=== PATIENT | male | born 1965 | race Caucasian/White ===

== ENCOUNTER → 2020-03-18 16:40 | Outpatient (BNVA) | payer OTHER, SELFPAY | PROVIDERS: Family Provider Nurse Practitioner; PCP Nurse Practitioner; Visit Provider Nurse Practitioner | DX: M54.5 Low back pain (principal); Z98.890 Other specified postprocedural states | CPT/HCPCS: 81000 ==

== ENCOUNTER → 2020-03-24 14:57 | Outpatient (BNVA) | payer OTHER, SELFPAY | PROVIDERS: Family Provider Nurse Practitioner; PCP Nurse Practitioner; Visit Provider Nurse Practitioner | DX: M54.5 Low back pain (principal) | CPT/HCPCS: 72100 ==

== ENCOUNTER → 2020-05-20 09:20 | Outpatient (BNVA) | payer OTHER, SELFPAY | PROVIDERS: Family Provider Nurse Practitioner; PCP Nurse Practitioner; Visit Provider Surgery | DX: Z20.822 Contact with and (suspected) exposure to COVID-19 (principal); Z86.010 Personal history of colon polyps | CPT/HCPCS: 87635 ==

== ENCOUNTER 2020-05-26 07:29 | Day surgery (SDC) | payer OTHER, SELFPAY ==
[2020-05-24 13:49] VITALS: BMI 23.7
--- NOTE | 2020-05-26 07:35 | ANES.PREANE2 ---
Pre-Anesthetic Assessment Pre-Anesthetic Assessment: Height/Weight: Height 1.83 m Weight 79.379 kg Preop Diagnosis: polyps Proposed Procedure: Operation Date: 05/26/20 09:00 Proposed Procedures p Colonoscopy 12338 Z86.101(Not Applicable) - Obie Santos MD Familial anesthetic complications: none Was Beta Temitope taken within 24 hours: Yes Was Clonidine taken within 24 hours: N/A Last intake: > 8 hrs Social: Social History: Tobacco and No alcohol Exam: Pre-Anes Outpt Exam: alert, oriented x 3, clear to auscultation bilaterally and regular rate & rhythm Airway: Cervical ROM: WNL MP: 2 Dentition: Partials CV/HEM: CV/HEM: HTN and LA (13 years ago) Comments: Still takes plavix, but denies any stents placed in the heart. 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 Currently holding plavix, which he has done for prior colonopscopies Anesthetic Plan: ASA status: 3 Anesthesia: MAC Risk of > 500 ml blood loss (7ml/kg in children): No PFSH Anesthesia PFSH: Medical History Colon polyps Current smoker Hypertension Surgical History History of appendectomy History of colonoscopy with polypectomy Family History Other Cancer Diabetes Hypertension Lung disease Denies family history of Dementia Stroke Social History Smoking and tobacco status: current every day smoker Second hand smoke exposure: No Smoking risk assessment/counseling performed?: Yes Alcohol intake: never Desire information about alcohol rehabilitation?: No Counseling given: No Desire information about substance/drug rehabilitation?: No Counseling given: No Adopted: No Caregiver/support person: No Lives independently: Yes Household members: spouse Housing: House Marital status: Number of children: 2 service: No 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
[2020-05-26 07:57] VITALS: BP 128/85; PULSE 67; RESP 16; TEMP 36.4; O2SAT 95
[2020-05-26] MEDS: sodium chloride 0.9% 1,000 ML 30 ML IV (08:03)
--- NOTE | 2020-05-26 08:16 | W.PM.OPSUD ---
Surgery/Procedure H&P Update DATE OF PROCEDURE: May 26, 2020 DATE H&P PERFORMED: 05/03/20 H&P UPDATE INFORMATION: I have reviewed H&P completed within last 30 days, I have examined patient prior to procedure and No changes to prior documentation PREOP DIAGNOSIS: History of colon polyps and family history of colon cancer PRIMARY INDICATION FOR PROCEDURE: The same PLANNED PROCEDURE: Operation Date: 05/26/20 09:00 Proposed Procedures p Colonoscopy 16125 Z86.101(Not Applicable) - Obie Satnos MD
--- NOTE | 2020-05-26 09:09 | ANE.PACU2 ---
Inpatient post-anesthesia follow up: Airway intact: Yes Vital signs: Temperature 97.5 F Pulse Rate 67 Respiratory Rate 16 Blood Pressure 128/85 Pulse Oximetry 95 Oxygen Delivery Me thod Oxygen Flow Rate Fraction of Inspir ed Oxygen Hydration adequate: Yes Nausea and vomiting: No Pain level: 1
[2020-05-26 09:10] VITALS: BP 113/75; PULSE 56; RESP 18; TEMP 36.1; O2SAT 94
[2020-05-26 09:17] VITALS: BP 100/55; PULSE 51; RESP 18; O2SAT 94
== END 2020-05-26 09:35 | disposition home or self-care (01) ==
PROVIDERS: PCP Nurse Practitioner; Visit Provider Surgery
PROC: 0DJD8ZZ Inspection of Lower Intestinal Tract, Via Natural or Artificial Opening Endoscopic (ICD-10-PCS; CPT 45378; principal; 2020-05-26 09:00)
DX: D12.5 Benign neoplasm of sigmoid colon (principal); Z80.0 Family history of malignant neoplasm of digestive organs; Z86.010 Personal history of colon polyps; Z79.82 Long term (current) use of aspirin; I10 Essential (primary) hypertension; I25.2 Old myocardial infarction; Z79.02 Long term (current) use of antithrombotics/antiplatelets; F17.210 Nicotine dependence, cigarettes, uncomplicated
CPT/HCPCS: 45385; 96360; 96361; J2704; J3490; J7030

== ENCOUNTER 2020-05-31 14:19 | Emergency (ER) | payer OTHER, SELFPAY ==
[2020-05-31 14:54] VITALS: BP 119/70; PULSE 90; RESP 18; TEMP 37; O2SAT 96; BMI 23.7
--- NOTE | 2020-05-31 16:06 | ECG_ITS ---
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 Measurements Intervals [place] Rate: 88 P: 51 PA: 148 QRS: 38 QRSD: 82 T: 53 QT: 340 QTc: 412 Interpretive Statements SINUS RHYTHM WITH OCCASIONAL VENTRICULAR PREMATURE COMPLEXES No previous ECG available for comparison Electronically Signed On 05-31-2020 20:10:32 CDT by Brian Avalos M.D. [email or web address] [id number]
--- NOTE | 2020-05-31 16:06 | XRR_ITS ---
PROCEDURE INFORMATION: Exam: XR Chest Exam date and time: 05/31/2020 4:33 PM Age: 54 years old Clinical indication: Chest pain; Prior surgery; Surgery type: Appy TECHNIQUE: Imaging protocol: XR of the chest. Views: 1 view. COMPARISON: CR Chest 2 views* [id number] 09/03/2013 4:32 PM FINDINGS: Lungs: No consolidation. There is minimal linear scarring in lung bases. Pleural spaces: Unremarkable. No pleural effusion. No pneumothorax. Heart/Mediastinum: No significant cardiomegaly. Bones/joints: No acute finding. XR/XR chest 1V portable [id number] IMPRESSION: No acute cardiopulmonary finding.
[2020-05-31 17:21] LABS: Basophils % 0.2 %; Eosinophils # 0.1 10^3/uL (0.0-0.8); Eosinophils % 0.6 %; Hemoglobin 15.7 g/dL (11.7-16.6); Lymphocytes # 0.7 10^3/uL (0.8-4.8); Lymphocytes % 4.4 %; Mean Corpuscular HGB Conc 32.7 g/dL (30.0-36.0); Mean Corpuscular Hemoglobin 30.2 pg (28.0-34.0); Mean Corpuscular Volume 92.3 fL (80-94); Mean Platelet Volume 10.7 fL (7.4-10.4); Monocytes # 0.6 10^3/uL (0.2-0.9); Monocytes % 3.6 %; Neutrophils # 14.74 10^3/uL (1.8-7.7); Neutrophils % 90.8 %; Nucleated Red Blood Cells % 0 %; Platelet Count 316 10^3/cmm (130-400); Red Cell Distribution Width 13.3 % (12.1-15.1); White Blood Count 16.2 10^3/uL (4.0-10.0)
[2020-05-31 17:26] VITALS: BP 154/88; PULSE 72; RESP 19; O2SAT 99
--- NOTE | 2020-05-31 17:46 | CTR_ITS ---
PROCEDURE INFORMATION: Exam: CT Abdomen And Pelvis With Contrast Exam date and time: 05/31/2020 5:51 PM Age: 54 years old Clinical indication: Nausea and vomiting and other: Diarrhea; Abdominal pain; Localized; Right lower quadrant (rlq); Prior surgery; Surgery type: Appy; Additional info: Abd pain TECHNIQUE: Imaging protocol: Computed tomography of the abdomen and pelvis with contrast. Total images: 233 Radiation optimization: All CT scans at this facility use at least one of these dose optimization techniques: automated exposure control; mA and/or kV adjustment per patient size (includes targeted exams where dose is matched to clinical indication); or iterative reconstruction. Contrast material: OMNI 300; Contrast volume: 95 ml; Contrast route: INTRAVENOUS (IV); COMPARISON: No relevant prior studies available. RADIATION DOSE METRICS: Total DLP (mGy-cm): 1293.34 FINDINGS: Lungs: Peripheral acinar emphysema. Evidence of moderate pulmonary fibrosis. Liver: Mild diffuse fatty infiltration of the liver. No visible hepatic mass. Rare hepatic calcified granuloma of antecedent disease. Small 1 cm simple hepatic cyst right hepatic lobe. Gallbladder and bile ducts: Unremarkable. No calcified stones. No ductal dilation. Pancreas: Pancreas unremarkable. No visible pancreatic ductal ectasia. Spleen: Scattered splenic calcifications of antecedent granulomatous disease. Adrenal glands: Adrenal glands unremarkable. Kidneys and ureters: No hydronephrosis or perinephric fluid. No visible nephrolithiasis. No visible ureterolithiasis. Stomach and bowel: Prominent gastric rugal mucosal fold pattern which could be secondary to chronic gastritis or acute exacerbation of chronic gastritis. No visible ulcer. Nonobstructed bowel pattern. No visible acute diverticulitis. No visible adynamic or reactive ileus. Appendix: Status post appendectomy. Intraperitoneal space: No visible evidence of mesenteric lymphadenitis or active mesenteritis/panniculitis. No visible pneumoperitoneum or intraperitoneal ascites. Vasculature: Coronary artery disease. Portal vein patent. The abdominal aorta is nonaneurysmal. Moderately advanced arterial sclerotic disease. Lymph nodes: No current visible evidence of active mesenteric or retroperitoneal lymphadenopathy. Urinary bladder: Urinary bladder unremarkable. Reproductive: Prostate hypertrophy. Bones/joints: No visible active or acute osseous pathology. Soft tissues: Bilateral small inguinal hernias containing fat only. CT/CT abdomen pelvis w con* [id number] IMPRESSION: Prominent gastric rugal mucosal fold pattern which could be secondary to chronic gastritis or acute exacerbation of chronic gastritis. No visible ulcer. Radiation Dose CTDIVOL = (mGy): DLP = 1293.34 (mGy-cm)
--- NOTE | 2020-05-31 17:48 | ED_ITS ---
Documented by User: Edgar Sharma DO 05/31/20 17:59 HPI - Chest Pain General: Chief Complaint: Chest Pain Stated Complaint: chest and stomach pain, nausea, diarrhea Time Seen by Provider: 05/31/20 17:20 History of Present Illness: HPI narrative: 54-year-old male presents emergency room with complaints of diarrhea and dark stools that began this morning suddenly along with upper abdominal pain after that he began getting some substernal chest pain he took 2 nitro with relief of the chest pain. But a week ago he had attempted colonoscopy but narrowing at the splenic flexure he was only able to get to ascending colon, he had sigmoid colon polyps but that did not make it to the cecum. He has not had any bright red blood per rectum. He also mentioned he was scheduled for an ultrasound but was not sure what it was of. MD complaint: chest pain Pertinent past history: coronary artery disease Onset (ago): hour(s) Timing of current episode: episodic Prior episodes: Yes Onset: during rest Pain location: substernal Pain radiation: abdomen Severity: moderate Quality: aching and heaviness Relieving factors: nitroglycerin Exacerbating factors: nothing Associated symptoms: Reports abdominal pain; Deny diaphoresis, dyspnea, fever(s), leg edema, nausea, palpitations, sense of impending doom, syncope or vomiting Treatment prior to arrival: none Review of Systems Const: Denies: fever(s) or diaphoresis ENMT: Denies: throat pain, ear or mastoid pain, nasal discharge or nasal congestion Card: Denies: palpitations or syncope Resp: Denies: dyspnea GI: Reports: abdominal pain; Denies: nausea or vomiting : Denies: flank pain, dysuria, urinary frequency or urinary urgency Skin/Breast: Denies: rash or pruritus PFSH ED PFSH: Medical History Colon polyps Current smoker Hypertension Surgical History History of appendectomy History of colonoscopy with polypectomy Family History Other Cancer Diabetes Hypertension Lung disease Denies family history of Dementia Stroke Social History Smoking and tobacco status: current every day smoker Second hand smoke exposure: No Smoking risk assessment/counseling performed?: Yes Alcohol intake: never Desire information about alcohol rehabilitation?: No Counseling given: No Desire information about substance/drug rehabilitation?: No Counseling given: No Adopted: No Caregiver/support person: No Lives independently: Yes Household members: spouse Housing: House Marital status: Number of children: 2 service: No 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 Current gender identity: Male Physical Exam Const: COMMON NORMALS: no acute distress GENERAL APPEARANCE: cooperative and comfortable ORIENTATION/CONSCIOUSNESS: Yes awake, Yes oriented to person, Yes oriented to place and Yes oriented to time HENMT: COMMON NORMALS: normocephalic, atraumatic and hearing grossly normal bilaterally HEAD & SCALP: normocephalic and atraumatic Neck/C-Spine: COMMON NORMALS: full ROM, no lymphadenopathy, supple and no JVD Resp: COMMON NORMALS: normal respiratory effort, No retractions, No use of accessory muscles and clear to auscultation bilaterally AUSCULTATION: clear to auscultation bilaterally Cardio: COMMON NORMALS: no JVD, regular rate, regular rhythm and No murmurs present (Cardio) RATE: regular rate RHYTHM: regular rhythm GI: COMMON NORMALS: Soft to palpation and No hepatosplenomegaly present AUSCULTATION: Yes normoactive bowel sounds PALPATION: Yes Soft to palpation, No Tenderness to palpation present (GI), No Guarding due to palpation present (GI) and Yes No hepatosplenomegaly present Extremity: COMMON NORMALS: normal to inspection, capillary refill normal, no clubbing, cyanosis or edema, no calf tenderness and no pedal edema Neuro: SENSORIUM/ORIENTATION: Yes oriented to person, Yes oriented to place and Yes oriented to time Skin: COMMON NORMALS: no rashes or lesions noted GENERAL SKIN EXAM: no rashes or lesions noted Course Vital Signs: Vital signs: Vital Signs Temperature 98.3 F 05/31/20 20:26 Pulse Rate 71 05/31/20 20:26 Respiratory Rate 18 05/31/20 20:26 Blood Pressure 130/86 05/31/20 20:26 Pulse Oximetry 96 05/31/20 20:26 MDM - Chest Pain MDM Narrative: Medical decision making narrative: Care turned over to Dr. Yoo at change of shift please see his note for final diagnosis and disposition Lab Data: Labs: Lab Results 05/31/20 05/31/20 05/31/20 Range/Units 16:58 16:58 16:58 WBC 16.2 H (4.0-10.0) 10^3/ uL RBC 5.20 (4.1-5.3) 10^6/u L Hgb 15.7 (11.7-16.6) g/dL Hct 48.0 (42.0-52.0) % MCV 92.3 (80-94) fL MCH 30.2 (28.0-34.0) pg MCHC 32.7 (30.0-36.0) g/dL RDW 13.3 (12.1-15.1) % Plt Count 316 (130-400) 10^3/c mm MPV 10.7 H (7.4-10.4) fL Neut % (Auto) 90.8 % Lymph % (Auto) 4.4 % Tift % (Auto) 3.6 % Eos % (Auto) 0.6 % Baso % (Auto) 0.2 % Neut # (Auto) 14.74 H (1.8-7.7) 10^3/u L Lymph # (Auto) 0.7 L (0.8-4.8) 10^3/u L Tift # (Auto) 0.6 (0.2-0.9) 10^3/u L Eos # (Auto) 0.1 (0.0-0.8) 10^3/u L Baso # (Auto) 0.0 (0.0-0.1) 10^3/u L Nucleated RBC % (a uto) 0 % Nucleated RBCs # 0.0 /100WBC Sodium 137 (136-145) mmol/L Potassium 4.0 (3.5-5.1) mmol/L Chloride 99 (98-107) mmol/L Carbon Dioxide 24 (22-29) mmol/L Anion Gap 18.0 (5-19) BUN 17 (6-20) mg/dL Creatinine 0.7 (0.7-1.2) mg/dL GFR Calculation 117.1 (90-130) mL/min Glucose 121 H (65-115) mg/dL Calculated Osmolal ity 287 (285-295) mOsm/k g Lactic Acid 1.1 (0.5-2.2) mmol/L Calcium 9.6 (8.5-10.5) mg/dL Total Bilirubin 0.4 (0.15-1.2) mg/dL AST 20 (0-40) U/L ALT 24 (0-41) U/L Alkaline Phosphata se 150 H (40-130) IU/L Troponin T Baselin e (0-15) ng/L Troponin T 120 Min [place] (0-15) ng/L Delta Troponin T (0-10) ABS# Total Protein 7.6 (6.6-8.7) g/dL Albumin 4.9 (3.5-5.2) g/dL Globulin 2.7 (1.3-4.6) g/dL 05/31/20 05/31/20 Range/Units 16:58 19:12 WBC (4.0-10.0) 10^3/ uL RBC (4.1-5.3) 10^6/u L Hgb (11.7-16.6) g/dL Hct (42.0-52.0) % MCV (80-94) fL MCH (28.0-34.0) pg MCHC (30.0-36.0) g/dL RDW (12.1-15.1) % Plt Count (130-400) 10^3/c mm MPV (7.4-10.4) fL Neut % (Auto) % Lymph % (Auto) % Tift % (Auto) % Eos % (Auto) % Baso % (Auto) % Neut # (Auto) (1.8-7.7) 10^3/u L Lymph # (Auto) (0.8-4.8) 10^3/u L Tift # (Auto) (0.2-0.9) 10^3/u L Eos # (Auto) (0.0-0.8) 10^3/u L Baso # (Auto) (0.0-0.1) 10^3/u L Nucleated RBC % (a uto) % Nucleated RBCs # /100WBC Sodium (136-145) mmol/L Potassium (3.5-5.1) mmol/L Chloride (98-107) mmol/L Carbon Dioxide (22-29) mmol/L Anion Gap (5-19) BUN (6-20) mg/dL Creatinine (0.7-1.2) mg/dL GFR Calculation (90-130) mL/min Glucose (65-115) mg/dL Calculated Osmolal ity (285-295) mOsm/k g Lactic Acid (0.5-2.2) mmol/L Calcium (8.5-10.5) mg/dL Total Bilirubin (0.15-1.2) mg/dL AST (0-40) U/L ALT (0-41) U/L Alkaline Phosphata se (40-130) IU/L Troponin T Baselin e 6 (0-15) ng/L Troponin T 120 Min [place] 6.69 (0-15) ng/L Delta Troponin T 0.69 (0-10) ABS# Total Protein (6.6-8.7) g/dL Albumin (3.5-5.2) g/dL Globulin (1.3-4.6) g/dL Discharge Plan Discharge Patient Disposition: Home Clinical Impression: Atypical chest pain Nausea & vomiting Qualifiers: Vomiting type: unspecified Vomiting Intractability: unspecified Qualified Code(s): R11.2 - Nausea with vomiting, unspecified Diarrhea Qualifiers: Diarrhea type: unspecified type Qualified Code(s): R19.7 - Diarrhea, unspecified Gastritis Qualifiers: Gastritis type: unspecified gastritis Chronicity: acute Gastritis bleeding: presence of bleeding unspecified Qualified Code(s): K29.00 - Acute gastritis without bleeding Condition: Stable Prescriptions: New Zofran 4 mg tablet 4 mg PO .q4 prn PRN (Reason: nausea and vomiting) 4 Days Qty: 10 RF: 0 No Action omega-3 fatty acids 500 mg capsule 500 mg PO DAILY RF: 0 B12 Active 1,000 mcg tablet,chewable 1,000 mcg PO DAILY RF: 0 multivitamin [Daily Multi-Vitamin] Tablet 1 tab PO DAILY RF: 0 clopidogrel 75 mg tablet 75 mg PO DAILY Qty: 90 RF: 3 Hold Instructions: Resume on 05/29/20. nitroglycerin 0.4 mg tablet, sublingual 0.4 mg SUBLINGUAL Q5M PRN (Reason: chest pain) Qty: 60 RF: 3 rosuvastatin 40 mg tablet 40 mg PO DAILY Qty: 90 RF: 3 metoprolol tartrate 25 mg tablet 25 mg PO BID Qty: 180 RF: 3 aspirin 81 mg Tablet 81 mg PO DAILY RF: 0 Hold Instructions: Resume on 05/29/20. Discharge Orders: Discharge ED (Routine); Ordered 05/31/20 Ordered By: Dragan Rose Referrals: Giulia Dietz, EFREN [Primary Care Provider] - Discharge Diet: Advance as tolerated Discharge Activity: Increase activity as tolerated Patient Instructions: Opioid Safety Activity Restrictions/Additional Instructions: Increase noncaffeine/nonalcoholic fluids keep a food diary Coding Level of Care Code ED [employer] for [employer] Fwd Exam Comprehensive Documented by User: Dragan Rose 06/01/20 01:46 HPI - Chest Pain General: Chief Complaint: Chest Pain Stated Complaint: chest and stomach pain, nausea, diarrhea Time Seen by Provider: 05/31/20 17:20 PFSH ED PFSH: Medical History Colon polyps Current smoker Hypertension Surgical History History of appendectomy History of colonoscopy with polypectomy Family History Other Cancer Diabetes Hypertension Lung disease Denies family history of Dementia Stroke Social History Smoking and tobacco status: current every day smoker Second hand smoke exposure: No Smoking risk assessment/counseling performed?: Yes Alcohol intake: never Desire information about alcohol rehabilitation?: No Counseling given: No Desire information about substance/drug rehabilitation?: No Counseling given: No Adopted: No Caregiver/support person: No Lives independently: Yes Household members: spouse Housing: House Marital status: Number of children: 2 service: No 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 Current gender identity: Male Course Vital Signs: Vital signs: Vital Signs Temperature 98.3 F 05/31/20 20:26 Pulse Rate 71 05/31/20 20:26 Respiratory Rate 18 05/31/20 20:26 Blood Pressure 130/86 05/31/20 20:26 Pulse Oximetry 96 05/31/20 20:26 MDM - Chest Pain Lab Data: Labs: Lab Results 05/31/20 05/31/20 05/31/20 Range/Units 16:58 16:58 16:58 WBC 16.2 H (4.0-10.0) 10^3/ uL RBC 5.20 (4.1-5.3) 10^6/u L Hgb 15.7 (11.7-16.6) g/dL Hct 48.0 (42.0-52.0) % MCV 92.3 (80-94) fL MCH 30.2 (28.0-34.0) pg MCHC 32.7 (30.0-36.0) g/dL RDW 13.3 (12.1-15.1) % Plt Count 316 (130-400) 10^3/c mm MPV 10.7 H (7.4-10.4) fL Neut % (Auto) 90.8 % Lymph % (Auto) 4.4 % Tift % (Auto) 3.6 % Eos % (Auto) 0.6 % Baso % (Auto) 0.2 % Neut # (Auto) 14.74 H (1.8-7.7) 10^3/u L Lymph # (Auto) 0.7 L (0.8-4.8) 10^3/u L Tift # (Auto) 0.6 (0.2-0.9) 10^3/u L Eos # (Auto) 0.1 (0.0-0.8) 10^3/u L Baso # (Auto) 0.0 (0.0-0.1) 10^3/u L Nucleated RBC % (a uto) 0 % Nucleated RBCs # 0.0 /100WBC Sodium 137 (136-145) mmol/L Potassium 4.0 (3.5-5.1) mmol/L Chloride 99 (98-107) mmol/L Carbon Dioxide 24 (22-29) mmol/L Anion Gap 18.0 (5-19) BUN 17 (6-20) mg/dL Creatinine 0.7 (0.7-1.2) mg/dL GFR Calculation 117.1 (90-130) mL/min Glucose 121 H (65-115) mg/dL Calculated Osmolal ity 287 (285-295) mOsm/k g Lactic Acid 1.1 (0.5-2.2) mmol/L Calcium 9.6 (8.5-10.5) mg/dL Total Bilirubin 0.4 (0.15-1.2) mg/dL AST 20 (0-40) U/L ALT 24 (0-41) U/L Alkaline Phosphata se 150 H (40-130) IU/L Troponin T Baselin e (0-15) ng/L Troponin T 120 Min [place] (0-15) ng/L Delta Troponin T (0-10) ABS# Total Protein 7.6 (6.6-8.7) g/dL Albumin 4.9 (3.5-5.2) g/dL Globulin 2.7 (1.3-4.6) g/dL 05/31/20 05/31/20 Range/Units 16:58 19:12 WBC (4.0-10.0) 10^3/ uL RBC (4.1-5.3) 10^6/u L Hgb (11.7-16.6) g/dL Hct (42.0-52.0) % MCV (80-94) fL MCH (28.0-34.0) pg MCHC (30.0-36.0) g/dL RDW (12.1-15.1) % Plt Count (130-400) 10^3/c mm MPV (7.4-10.4) fL Neut % (Auto) % Lymph % (Auto) % Tift % (Auto) % Eos % (Auto) % Baso % (Auto) % Neut # (Auto) (1.8-7.7) 10^3/u L Lymph # (Auto) (0.8-4.8) 10^3/u L Tift # (Auto) (0.2-0.9) 10^3/u L Eos # (Auto) (0.0-0.8) 10^3/u L Baso # (Auto) (0.0-0.1) 10^3/u L Nucleated RBC % (a uto) % Nucleated RBCs # /100WBC Sodium (136-145) mmol/L Potassium (3.5-5.1) mmol/L Chloride (98-107) mmol/L Carbon Dioxide (22-29) mmol/L Anion Gap (5-19) BUN (6-20) mg/dL Creatinine (0.7-1.2) mg/dL GFR Calculation (90-130) mL/min Glucose (65-115) mg/dL Calculated Osmolal ity (285-295) mOsm/k g Lactic Acid (0.5-2.2) mmol/L Calcium (8.5-10.5) mg/dL Total Bilirubin (0.15-1.2) mg/dL AST (0-40) U/L ALT (0-41) U/L Alkaline Phosphata se (40-130) IU/L Troponin T Baselin e 6 (0-15) ng/L Troponin T 120 Min [place] 6.69 (0-15) ng/L Delta Troponin T 0.69 (0-10) ABS# Total Protein (6.6-8.7) g/dL Albumin (3.5-5.2) g/dL Globulin (1.3-4.6) g/dL Discharge Plan Discharge Patient Disposition: Home Clinical Impression: Atypical chest pain Nausea & vomiting Qualifiers: Vomiting type: unspecified Vomiting Intractability: unspecified Qualified Code(s): R11.2 - Nausea with vomiting, unspecified Diarrhea Qualifiers: Diarrhea type: unspecified type Qualified Code(s): R19.7 - Diarrhea, unspecified Gastritis Qualifiers: Gastritis type: unspecified gastritis Chronicity: acute Gastritis bleeding: presence of bleeding unspecified Qualified Code(s): K29.00 - Acute gastritis without bleeding Condition: Stable Prescriptions: New Zofran 4 mg tablet 4 mg PO .q4 prn PRN (Reason: nausea and vomiting) 4 Days Qty: 10 RF: 0 No Action omega-3 fatty acids 500 mg capsule 500 mg PO DAILY RF: 0 B12 Active 1,000 mcg tablet,chewable 1,000 mcg PO DAILY RF: 0 multivitamin [Daily Multi-Vitamin] Tablet 1 tab PO DAILY RF: 0 clopidogrel 75 mg tablet 75 mg PO DAILY Qty: 90 RF: 3 Hold Instructions: Resume on 05/29/20. nitroglycerin 0.4 mg tablet, sublingual 0.4 mg SUBLINGUAL Q5M PRN (Reason: chest pain) Qty: 60 RF: 3 rosuvastatin 40 mg tablet 40 mg PO DAILY Qty: 90 RF: 3 metoprolol tartrate 25 mg tablet 25 mg PO BID Qty: 180 RF: 3 aspirin 81 mg Tablet 81 mg PO DAILY RF: 0 Hold Instructions: Resume on 05/29/20. Discharge Orders: Discharge ED (Routine); Ordered 05/31/20 Ordered By: Dragan Rose Referrals: Giulia Dietz, PHYSICIAN SPECIALIST-C [Primary Care Provider] - Discharge Diet: Advance as tolerated Discharge Activity: Increase activity as tolerated Patient Instructions: Opioid Safety Activity Restrictions/Additional Instructions: Increase noncaffeine/nonalcoholic fluids keep a food diary Coding Level of Care Code ED [employer] for Michael Fwd Exam Comprehensive
[2020-05-31 17:49] LABS: Lactic Sepsis W/Reflex 1.1 mmol/L (0.5-2.2)
[2020-05-31 17:59] LABS: Alanine Aminotransferase 24 U/L (0-41); Albumin Level 4.9 g/dL (3.5-5.2); Alkaline Phosphatase 150 IU/L (40-130); Aspartate Amino Transferase 20 U/L (0-40); Blood Urea Nitrogen 17 mg/dL (6-20); Calcium 9.6 mg/dL (8.5-10.5); Carbon Dioxide 24 mmol/L (22-29); Chloride 99 mmol/L (98-107); Globulin 2.7 g/dL (1.3-4.6); Glomerular Filtration Rate 117.1 mL/min (90-130); Glucose 121 mg/dL (65-115); Osmolality Calculated 287 mOsm/kg (285-295); Sodium 137 mmol/L (136-145); Total Bilirubin 0.4 mg/dL (0.15-1.2); Total Protein 7.6 g/dL (6.6-8.7); Troponin(5th) Baseline 6 ng/L (0-15)
[2020-05-31] MEDS: iohexol 300 mg/mL 100 mL Btl IV (18:01)
--- NOTE | 2020-05-31 18:06 | ECG_ITS ---
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 Measurements Intervals [place] Rate: 72 P: 49 GA: 187 QRS: 41 QRSD: 93 T: 43 QT: 360 QTc: 395 Interpretive Statements SINUS RHYTHM NONSPECIFIC T-WAVE ABNORMALITY Compared to ECG 05/31/2020 15:03:30 T-wave abnormality now present Ventricular premature complex(es) no longer present Electronically Signed On 05-31-2020 20:13:38 CDT by Brian Avalos M.D. [id number]
[2020-05-31 18:26] VITALS: BP 142/82; PULSE 74; RESP 18; O2SAT 98
[2020-05-31 19:00] VITALS: BP 126/81; PULSE 74; RESP 23; O2SAT 97
[2020-05-31 19:52] LABS: Troponin 5 2HR 6.69 ng/L (0-15); Troponin 5 2HR Delta 0.69 ABS# (0-10)
[2020-05-31 20:00] VITALS: BP 137/86; PULSE 78; RESP 16; O2SAT 97
[2020-05-31 20:26] VITALS: BP 130/86; PULSE 71; RESP 18; TEMP 36.8; O2SAT 96
== END 2020-05-31 20:26 | disposition home or self-care (01) ==
PROVIDERS: Physician Assistant; Emergency Provider Emergency Medicine; PCP Nurse Practitioner
DX: R07.89 Other chest pain (principal); K29.00 Acute gastritis without bleeding; Z79.02 Long term (current) use of antithrombotics/antiplatelets; Z79.82 Long term (current) use of aspirin; I10 Essential (primary) hypertension; F17.210 Nicotine dependence, cigarettes, uncomplicated
CPT/HCPCS: 36415; 71045; 74177; 80053; 83605; 84484; 85025; 93005; 99284; Q9967

== ENCOUNTER 2020-06-04 10:33 | Outpatient (CLI) | payer OTHER, SELFPAY ==
--- NOTE | 2020-06-04 10:42 | FL_ITS ---
WS: [id number] BARIUM ENEMA SINGLE CONTRAST. HISTORY: K63.5 - Polyp of colon COMPARISON: None available. FLUOROSCOPY TIME: 1.7 minutes. Marked tortuosity of the distal sigmoid colon. Colon filled very well with contrast. Mild overlapping loops of bowel but no strictures or polyps are identified. Cecum filled normally. The appendix has b een removed. There is mild reflux of contrast into the distal small bowel. No significant diverticula r disease. FL/FL barium enema [id number] IMPRESSION: 1. No strictures or mucosal masses or diverticula identified. 2. Overlapping loops of sigmoid colon with no abnormality identified. 3. Prior cholecystectomy.
== END 2020-06-04 10:34 | disposition home or self-care (01) ==
PROVIDERS: PCP Nurse Practitioner; Visit Provider Surgery
DX: K63.5 Polyp of colon (principal); Z90.49 Acquired absence of other specified parts of digestive tract
CPT/HCPCS: 74270

== ENCOUNTER 2020-06-22 14:59 | Outpatient (CLI) | payer OTHER, SELFPAY ==
--- NOTE | 2020-06-22 15:15 | MR_ITS ---
WS: [id number] MRI LUMBAR SPINE NONCONTRAST TECHNIQUE: Sagittal T1, T2 and STIR imaging. Axial T1 and T2 imaging. CLINICAL INFORMATION: M54.5 - Low back pain COMPARISON: None. FINDINGS: Counting performed from the craniocervical junction. L5 is sacralized with residual rudimen tary disc space.Mild lumbar curve. No acute compression. No high-grade central canal stenosis. L1-L2: Normal. L2-L3: Normal. L3-L4: Mild annular bulging. Slight effacement of ventral thecal sac. Mild bilateral foraminal narrow ing. Moderate facet arthropathy. L4-L5: Mild annular bulging with slight impingement on the left subarticular recess and traversing le ft L5 nerve root. Moderate facet arthropathy. Spinal canal and foramen are patent. L5-S1: Disc osteophytic ridging with slight contact of the traversing right greater than left S1 nerv e roots. Spinal canal and foramen are patent. Visualized pelvic bony structures: Normal. Paravertebral soft tissues: Normal. MR/MR lumbar spine wo con* [id number] IMPRESSION: 1. Counting performed from the craniocervical junction. L5 is sacralized with rudimentary disc space. 2. Mild lumbar curve. No acute compression. No high-grade central canal stenos is. 3. Left eccentric annular bulging L4-5 impinges the traversing left L5 nerve r oot. Recommend correlation for left L5 nerve root symptoms. 4. Mild bilateral L3-4 foraminal narrowing. 5. Disc osteophytic ridging L5-S1 contacts the traversing right greater than l eft S1 nerve roots. 6. Moderate facet arthropathy L3-L4 and L4-L5.
--- NOTE | 2020-06-22 16:00 | MR_ITS ---
WS: [id number] MRI THORACIC SPINE WITHOUT CONTRAST TECHNIQUE: Sagittal T1, T2 and STIR imaging. Axial T2 imaging. Noncontrast imaging obtained. CLINICAL INFORMATION: M54.5 - Low back pain COMPARISON: None. FINDINGS: Mild thoracic kyphosis. No acute compression fractures. No high-grade central canal stenosis. Cord si gnal is normal. Mild chronic anterior wedging in the mid thoracic spine at T7 and T8. A few endplate Schmorl's nodes in the mid thoracic spine. Small shallow disc protrusions more prominent at T3-T4, T4 -T5, and T6-T7. Moderate facet arthropathy lower thoracic spine. Small central disc protrusion in the lower cervical spine at C5-6 with slight contact of the cervical cord. Normal caliber thoracic aorta. Adrenal glands are normal. IMPRESSION: 1. Mild thoracic kyphosis. No acute compression. No high-grade central canal stenosis. 2. Mild chronic anterior wedging in the mid thoracic spine T7-T8. 3. Shallow central disc protrusions more prominent at T3-4, T4-5, and T6-7. 4. Protrusion more prominent at T6-7 with slight contact and indentation on the thoracic cord. Spina l canal is patent. Tiny annular fissure at this level. 5. Moderate facet arthropathy in the lower thoracic spine. 6. Right pericentral protrusion in the cervical spine at C5-C6 seen on the ecological technical officer imaging with slight contact of the cervical cord. This can be further evaluated with cervical spine MRI. 7. Moderate facet arthropathy lower thoracic spine.
== END 2020-06-22 15:00 | disposition home or self-care (01) ==
PROVIDERS: PCP Nurse Practitioner; Visit Provider Nurse Practitioner
DX: M40.294 Other kyphosis, thoracic region (principal); M48.54XA Collapsed vertebra, not elsewhere classified, thoracic region, initial encounter for fracture; M51.24 Other intervertebral disc displacement, thoracic region; M47.814 Spondylosis without myelopathy or radiculopathy, thoracic region; M50.222 Other cervical disc displacement at C5-C6 level
CPT/HCPCS: 72146; 72148

== ENCOUNTER 2020-07-27 15:37 | Outpatient (RCR) | payer OTHER, SELFPAY | END 2020-08-18 23:59 | disposition home or self-care (01) | LOC: SPT 15:37 | PROVIDERS: PCP Nurse Practitioner; Referring Provider Nurse Practitioner; Visit Provider Nurse Practitioner | DX: M54.6 Pain in thoracic spine (principal); M54.5 Low back pain | CPT/HCPCS: 97110; 97162 ==

== ENCOUNTER 2020-08-19 06:00 | Outpatient (RCR) | payer OTHER, SELFPAY | END 2020-09-18 23:59 | disposition home or self-care (01) | LOC: SPT 06:00 | PROVIDERS: PCP Nurse Practitioner; Referring Provider Nurse Practitioner; Visit Provider Nurse Practitioner | DX: M54.6 Pain in thoracic spine (principal); M54.5 Low back pain | CPT/HCPCS: 97110; 97164 ==

== ENCOUNTER 2020-09-19 06:00 | Outpatient (RCR) | payer OTHER, SELFPAY | END 2020-10-19 23:59 | disposition home or self-care (01) | LOC: SPT 06:00 | PROVIDERS: PCP Nurse Practitioner; Referring Provider Nurse Practitioner; Visit Provider Nurse Practitioner | DX: M54.6 Pain in thoracic spine (principal); M54.5 Low back pain | CPT/HCPCS: 97110 ==

== ENCOUNTER → 2020-12-23 08:15 | Outpatient (BNVA) | payer OTHER, SELFPAY | PROVIDERS: PCP Internal Medicine; Visit Provider Internal Medicine | DX: Z01.818 Encounter for other preprocedural examination (principal); Z20.822 Contact with and (suspected) exposure to COVID-19; R06.00 Dyspnea, unspecified | CPT/HCPCS: 80048; 85025; 85610; 87635 ==

== ENCOUNTER 2020-12-29 05:58 | Outpatient (CLI) | payer OTHER, SELFPAY ==
[2020-12-29] VITALS (21 sets, daily range): BP systolic 114–147; BP diastolic 74–82; PULSE 56–69; RESP 0–23; TEMP 36.5; O2SAT 91–96; BMI 24.1
--- NOTE | 2020-12-29 06:00 | XACV_ITS ---
Ht: 183 cm Wt: 81 kg BSA: 2.03 m2 Gender: Male : 1965 Any Known Allergies: Penicillins Exam Priority: Routine Procedure(s): Procedure Description: Diagnostic procedure Procedure Description: Right Heart Catheterization Procedure Description: O2 saturation Procedure Description: Coronary IVUS Procedure Description: Miscellaneous Procedure Description: Angio-Seal Procedure Description: ACT Procedure Description: Coronary Angiography Procedure Description: Pressure Wire Diagnostic Cath Status: Elective Diagnostic Findings * Indication: 57-year-old man with past medical history of coronary artery disease, prior angiogram in 2017 showing moderate left main stenosis for which FFR was nonischemic. Patient also had distal RCA HAND STRAIGHTENER with collaterals from LAD. He has been having worsening shortness of breath and fatigue. Given his known left main stenosis and worsening symptoms, plan for coronary angiogram. * Left Anterior Descending is a tortuous vessel. It has moderate 40 to 50% proximal vessel stenosis. * Circumflex is a small sized vessel with no significant disease. * Left Main: obstructive 60% stenosis, JASWINDER: 3 flow. Calcified ostial stenosis. * Ramus: Medium to large sized vessel, proximal 60% stenosis, JASWINDER: 3 flow. * Right heart cath findings: RA pressure: 13/10/9 mmHg RV pressure: 60/2/12 mmHg. PCW: 13/13/11 mmHg PA pressure: 56/24/36 mmHg AO saturation: 91% PA saturation: 66% Cardiac output: 5.2L/min Cardiac index: 2.6L/min/m2 Moderate precapillary pulmonary hypertension. * Distal Right Coronary Artery: total occlusion, JASWINDER: 3 flow. * 1st Diagonal: obstructive 70% stenosis, JASWINDER: 3 flow. * Coronary angiography shows right dominance. Interventional Findings * Procedure detail: We engaged left main artery with JL 4 guide catheter. IV heparin was administered to maintain an ACT above 250 s. 0.014 run-through guidewire was used to cross ostial left main artery stenosis. IVUS catheter was inserted to to assess left main artery. Ostial left main was calcified vessel with MLA of 6.4 mm2. Given borderline findings, we proceeded with FFR of ostial left main artery to confirm severity of stenosis. FFR of left main artery was 0.78. At this time, pressure wire and guide catheter were removed. Angio-Seal was deployed to obtain hemostasis. Conclusions 1. Severe 2. ostial left main artery stenosis 3. confirmed with FFR value of 0.78 4. . 5. IVUS had borderline MLA of 6.4 mm2 6. and calcified ostium. 7. 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 8. Moderate disease of a medium to large sized ramus intermedius. 9. Moderate precapillary pulmonary hypertension noted. 10. Normal right and left-sided cardiac pressures. Recommendations * Given ostial left main stenosis is severe, confirmed with FFR and borderline significant MLA, we will refer patient for coronary artery bypass surgery. Plan discussed with patient, who wants to have surgery performed in [place]. * We will refer him for CABG. * Outpatient cardiology follow-up in 4 weeks. * Patient informed about warning symptoms and told if has significant chest pain to come to ER. Interventional RX Recommendation: CABG Anticoagulation: Heparin Pressures Phase:Rest AO : 122 / 70 ( 89 ) @ 6:24:00 AM 118 / 68 ( 88 ) @ 6:26:00 AM 118 / 78 ( 96 ) @ 6:51:00 AM RV : 60 / 2 / 12 @ 6:01:00 AM PA : 56 / 24 ( 36 ) @ 6:00:00 AM RA : a wave = 13 v wave = 10 mean = 9 @ 6:01:00 AM PCW : a wave = 13 v wave = 13 mean = 11 @ 5:59:00 AM O2 Content Phase:Rest PA : O2 Content O2: 66.1 @ 6:24:00 AM Saturations Phase:Rest AO : 91 @ 6:26:00 AM PA : 66 @ 6:24:00 AM Cardiac Output Phase:Rest [place] : 5 @ 9:28:02 AM [place] Cardiac Index: 2 @ 9:28:02 AM Flow Phase:Rest Qp : 5 @ 9:28:02 AM Qs : 5 @ 9:28:02 AM Clinical Evaluation EBL: 5mL-10mL Procedural Details Pre-Procedure Time Out. Identified patient by full name and date of as verbalized by the patient/guarantor. Does the consent match the physician's order: Yes. Accurate & Complete Informed Consent: Yes. Inpatient/Outpatient History & Physical on Chart: Yes. If H&P is completed, is and addenduem needed: No; If yes, is the addendum complete: N/A. Visualize and Verify Site with Patient/Guarantor: N/A. Relevant Radiology Images available: N/A. Pre-op teaching completed and patient verbalized understanding. The risks, benefits, and alternatives of sedation and/or procedure were discussed by physician. The patient agrees to continue. Procedure started. [facility] Clinical Fraility Score: 2: Well. Set Up Worker Indications: Worsening Angina. Chest Pain Symptom Assessment: Atypical Angina. Cardiovascular Instability: No. Correct patient, site and procedure confirmed by cath team. PERRLA. Strong, equal hand hospitality aide bilaterally. Lungs clear x 5 lobes. IV Site on Arrival: 20 gauge in the right anticubital. IV Site on Arrival: 20 gauge in the left anticubital. IV Fluids: 0.9% NaCl at KVO. 0 mL infused prior to cath lab tech. Pre Procedural Pulses: right dorsalis pedis was 1+. Pre Procedural Pulses: left dorsalis pedis was 2+. Pre Procedural Pulses: right posterior tibial was 1+. Pre Procedural Pulses: left posterior tibial was 2+. Pre Procedural Pulses: bilateral radial was 3+. right radial was prepped with chloroprep then draped in the usual sterile fashion. right brachial was prepped with chloroprep then draped in the usual sterile fashion. Baseline sample Acquired. HR: 60 BPM. Equipment: 6F - Radial. Cardiac Cath Pack. ACIST Manifold Kit Model BT 2000. Heparinized Saline (2 units/mL), 1000 mL bag. Yadiel Cerda will be planetarium sky show technician for procedure and Kizzy Landis RN will be circulating nurse for procedure. Physician arrived. Wire inserted through IV catheter in brachial vein. Physician scrubbed in. Immediate Pre-Procedure Time Out. Correct Patient: Yes; Correct Procedure: Yes; Correct Site: Yes; Correct Patient Position: Yes; Correct Supplies: Yes; Dried Flammable Prep: Yes; Blood Products Available: N/A;. Lidocaine 1% infiltrated to the right brachial. IV catheter removed over wire. [place] MON catheter inserted. [place] out. Lidocaine 1% infiltrated to the right radial. Arterial access obtained. Wire and needle out. Physician using ultrasound machine to gain arterial access. Unable to obtain radial access. MD attempting to gain access in the Femoral artery. Lidocaine 1% infiltrated to the right groin. Arterial access obtained. A 5 new zealander JL4 catheter in over wire. Multiple views taken of left coronary artery. Catheter removed over the standard wire. A 5 new zealander JR4 catheter in over wire. Multiple views taken of right coronary artery. Catheter out. Inventory is CRD 6FR JL 4 GUIDE. Inventory is TR 180cm Runthrough NS extra floppy 0.014 wire. 6 new zealander JL 4 guide catheter was inserted over the wire. Runthrough guidewire was advanced through the guide catheter to lesion in the Ostial Left Main. IVUS catheter inserted. IVUS pulled back from LAD. IVUS measurement obtained. Family updated. IVUS catheter removed. FFR guidewire was advanced through the guide catheter to lesion in the ostial LMCA. ACT drawn. Results 233 seconds. Therapeutic limits - pre-heparin administration 90-150 seconds and monitoring heparin during a vascular procedure >250 seconds. Runthrough wire out. An FFR value of 0.78 was obtained for a lesion located at LMCA. Fractional flow reserve measurements obtained. Wire out. Guide catheter out. A Angio-Seal VIP ([facility]) was successful obtaining hemostatsis at the Right Femoral artery insertion site. Angioseal placed without complications. No signs or symptoms of hematoma noted. Sterile dressing applied per usual sterile fashion. Dr Avalos scrubbed out. A Manual Compression was successful obtaining hemostatsis at the Right Brachial Vein insertion site. Brachial Sheath removed and manual pressure held until hemostasis was achieved. Sterile 4x4 and Op-site applied to the puncture site. No oozing or hematoma noted. Post sheath removal instructions were given and the patient verbalized understanding. Post Procedure: Pulses reassessed and unchanged. PERRLA. Strong, equal hand hospitality aide bilaterally. No VTE prophylaxis required. Medication's Wasted: Lidocaine 1% = 3 mL. Medication's Wasted: Heparin = 2000 units. Total IV fluids: 117 mL. Contrast type used: Omnipaque 300 mgI/mL, 500 mL bottle. Medication's Wasted: Other = adenosine 68 mL. Complications: none. Post-op diagnosis: severe CAD with ostial LMCA desease. Estimated blood loss: 5mL-10mL. Procedure completed. Patient transferred by bed to 1st floor. Vital chart was stopped. Access Site Site: Right Brachial Vein Sheath Size: 6 Fr Hemostasis Method: Manual Compression Hemostasis Success: Successful Site: Right Femoral artery Sheath Size: 6 Fr Hemostasis Method: Angio-Seal VIP ([facility]) Hemostasis Success: Successful Procedure Medications Start: 7:48 AM Stop: 7:48 AM Medication: Versed Amount: 1 mg Route: I.V. Start: 7:48 AM Stop: 7:48 AM Medication: Fentanyl Amount: 50 mcg Route: I.V. Start: 8:18 AM Stop: 8:18 AM Medication: Versed Amount: 1 mg Route: I.V. Start: 8:32 AM Stop: 8:32 AM Medication: Heparin Amount: 7000 units Start: 8:48 AM Stop: 8:48 AM Medication: Heparin Amount: 1000 units Route: I.V. Start: 9:03 AM Stop: 9:03 AM Medication: Heparin Amount: 1000 units Route: I.V. I, the attending physician, have reviewed and verified all procedure medications. Yes, all medications given per verbal order History/Risk Factors Hypertension: Yes Dyslipidemia: No Peripheral Arterial Disease (PAD): No Myocardial Infarction (OK): No Obesity: No Renal Disease: No Prior Interventions PCI: No CABG: No Valve Surgery: No Report Signatures Finalized by Brian Avalos MD on 02/18/2021 09:47 AM
[2020-12-29] MEDS: diphenhydrAMINE 50 mg Capsule PO (06:56)
--- NOTE | 2020-12-29 07:37 | W.PM.OPSUD ---
Surgery/Procedure H&P Update DATE OF PROCEDURE: December 29, 2020 DATE H&P PERFORMED: 12/13/20 H&P UPDATE INFORMATION: I have reviewed H&P completed within last 30 days, I have examined patient prior to procedure and No changes to prior documentation PREOP DIAGNOSIS: Worsening dyspnea on exertion PRIMARY INDICATION FOR PROCEDURE: Worsening dyspnea on exertion PLANNED PROCEDURE: Operation Date: 12/29/20 07:00 Proposed Procedures p Cardiac Catheterization(Bilateral) - Brian Avalos M.D Possible percutaneous coronary intervention PATIENT REASSESSED PRIOR TO SEDATION, WITH NO CHANGE NOTED: Yes PHYSICAL EXAM: alert, oriented x 3, clear to auscultation bilaterally and regular rate & rhythm AIRWAY EVAL/ANESTHESIA PLAN: ASA III, Monitored Anesthesia, Local Anesthesia, Risks, benefits & alternatives of sedation and/or procedure discussed and Patient agrees to continue as planned
[2020-12-29 08:11] LABS: Arterial Blood Gas Hematocrit 42.6 % (42-52); Blood Gas Operator Identificat PULM ARTERY; Blood Gas Sample Site Not specified; Blood Gas Sample Type Not specified; Carboxyhemoglobin 5.2 %THgb (0.4-20.1); HGB O2 Sat 62.1 % (95-100); Methemoglobin 0.9 % (0.4-1.5); Total Hemoglobin 13.9 g/dL (14-18)
[2020-12-29 08:32] LABS: Alveolar-Arterial Oxygen Gradi 5.5 mmHg (5-10); Arterial Blood Gas Hematocrit 40.7 % (42-52); Blood Gas Operator Identificat AO; Blood Gas Sample Site Not specified; Blood Gas Sample Type Arterial; Carboxyhemoglobin 5.1 %THgb (0.4-20.1); HGB O2 Sat 85.1 % (95-100); Oxygen Device ROOM AIR; Total Hemoglobin 13.3 g/dL (14-18)
[2020-12-29] MEDS: sodium chloride 0.9% 1,000 ML 75 ML IV (10:15)
--- NOTE | 2020-12-29 15:37 | PC.NURSE ---
ambulation Pt is up and walking down hallways. Denies any pain or discomfort. No hematoma or swelling noted on right groin dressing. 0.2 cmx 0.2cm blood ooze on the dressing, no significant bleeding saturation for 6 hrs post angiogram w/angio seal closure device. Instructed pt on activity restrictions.
--- NOTE | 2020-12-29 17:07 | PC.NURSE ---
Discharge Note Patient discharged to home via bed accompanied by . Discharge instructions reviewed with patient and/or scheduling representative. Mobile pharmacy medications and/or prescriptions provided. Belongings/home medications returned. Post angiogram home care instructions discussed to pt. Discharge packet provided to pt.
== END 2020-12-29 16:30 | disposition home or self-care (01) ==
LOC: CCL 06:00 → CSU 10:08
PROVIDERS: PCP Nurse Practitioner; Visit Provider Internal Medicine
DX: R06.00 Dyspnea, unspecified (principal); I25.10 Atherosclerotic heart disease of native coronary artery without angina pectoris; I25.2 Old myocardial infarction; J44.9 Chronic obstructive pulmonary disease, unspecified; I25.82 Chronic total occlusion of coronary artery; I27.20 Pulmonary hypertension, unspecified; I10 Essential (primary) hypertension; F17.210 Nicotine dependence, cigarettes, uncomplicated
CPT/HCPCS: 36415; 82810; 92978; 93456; 93571; C1751; C1753; C1760; C1769; C1887; C1894; G0378; J0153; J1644; J2250; J3010; J3490; J7030; Q0163; Q9967

== ENCOUNTER → 2021-01-04 10:38 | Outpatient (BNVA) | payer OTHER, SELFPAY | PROVIDERS: PCP Nurse Practitioner; Visit Provider Nurse Practitioner Family | DX: R05.9 Cough, unspecified (principal) | CPT/HCPCS: 71046 ==

== ENCOUNTER → 2021-01-07 11:33 | Outpatient (BNVA) | payer OTHER, SELFPAY | PROVIDERS: PCP Nurse Practitioner; Visit Provider Nurse Practitioner Family | DX: I25.119 Atherosclerotic heart disease of native coronary artery with unspecified angina pectoris (principal) | CPT/HCPCS: 80048 ==

== ENCOUNTER 2021-01-22 23:12 | Emergency (ER) | payer OTHER, SELFPAY ==
[2021-01-22 23:19] VITALS: BP 170/79; PULSE 57; RESP 18; TEMP 37.1; O2SAT 98; BMI 23.7
--- NOTE | 2021-01-22 23:24 | ECG_ITS ---
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 [email or web address]
--- NOTE | 2021-01-22 23:46 | XRR_ITS ---
PROCEDURE INFORMATION: Exam: XR Chest Exam date and time: 01/22/2021 11:46 PM Age: 55 years old Clinical indication: Sternal or substernal pain; Additional info: Cp TECHNIQUE: Imaging protocol: XR of the chest. Views: 1 view. COMPARISON: CR XR chest 2V* [id number] 01/04/2021 10:43 AM FINDINGS: Lungs: Lungs are clear. Pleural spaces: There is no pleural effusion or pneumothorax. Heart/Mediastinum: There are calcified right hilar lymph nodes. Cardiomediastinal contours are unremarkable. Bones/joints: Bones are unremarkable. XR/XR chest 1V portable [id number] IMPRESSION: No acute findings. Radiation Dose CTDIVOL = (mGy): DLP = (mGy-cm)
[2021-01-23 00:24] LABS: Basophils # 0.1 10^3/uL (0.0-0.1); Basophils % 0.3 %; Eosinophils # 0.2 10^3/uL (0.0-0.8); Eosinophils % 1.3 %; Hematocrit 40.1 % (42.0-52.0); Hemoglobin 13.4 g/dL (11.7-16.6); Lymphocytes # 2.2 10^3/uL (0.8-4.8); Lymphocytes % 13.2 %; Mean Corpuscular HGB Conc 33.4 g/dL (30.0-36.0); Mean Corpuscular Hemoglobin 30.2 pg (28.0-34.0); Mean Corpuscular Volume 90.5 fl (80-94); Mean Platelet Volume 10.8 fL (7.4-10.4); Monocytes # 0.8 10^3/uL (0.2-0.9); Neutrophils # 13.12 10^3/uL (1.8-7.7); Neutrophils % 79.7 %; Nucleated Red Blood Cells % 0 %; Platelet Count 265 10^3/cmm (130-400); Red Blood Count 4.43 10^6/uL (4.1-5.3); Red Cell Distribution Width 13.3 % (12.1-15.1); White Blood Count 16.5 10^3/uL (4.0-10.0)
[2021-01-23 00:36] LABS: INR 1.05 (0.8-1.2)
[2021-01-23 00:37] LABS: Partial Thromboplastin Time 29.5 SECONDS (23.9-36.7)
[2021-01-23 00:44] LABS: Troponin(5th) Baseline 7 ng/L (0-15)
[2021-01-23 00:51] LABS: Alanine Aminotransferase 24 U/L (0-41); Albumin Level 4.4 g/dL (3.5-5.2); Alkaline Phosphatase 104 IU/L (40-130); Anion Gap 32.3 (5-19); Aspartate Amino Transferase 20 U/L (0-40); Blood Urea Nitrogen 13 mg/dL (6-20); Calcium 9.5 mg/dL (8.5-10.5); Carbon Dioxide 23 mmol/L (22-29); Chloride 117 mmol/L (98-107); Glucose 94 mg/dL (65-115); NT Pro B Type Natriuretic Pept 75 pg/mL (0-125); Osmolality Calculated 344 mOsm/kg (285-295); Potassium 5.3 mmol/L (3.5-5.1); Total Bilirubin 0.2 mg/dL (0.15-1.2); Total Protein 6.4 g/dL (6.6-8.7)
[2021-01-23 00:59] LABS: Sodium 167 mmol/L (136-145)
[2021-01-23 01:00] VITALS: RESP 18; O2SAT 99
[2021-01-23] MEDS: morphine 4 mg/mL SDV 1 mL IVP (01:00)
[2021-01-23] MEDS: ondansetron 2 mg/ML SDV 2 mL 4 MG IVP (01:00)
--- NOTE | 2021-01-23 01:25 | ED_ITS ---
HPI - Chest Pain General: Chief Complaint: Chest Pain Stated Complaint: Chest pain Time Seen by Provider: 01/22/21 23:45 History of Present Illness: HPI narrative: 55-year-old gentleman with a history of coronary artery disease. He had a recent catheterization showing significant stenosis of his LAD with occlusion of his RCA. CABG x2 was suggested. He is waiting on a referral to [facility] in [place] cardiothoracic surgery for that. He developed chest pain last night, and took 2 nitroglycerin with some improvement. He developed chest pain again tonight, and took 3 nitroglycerin at home with incomplete improvement. He also used some Tums without help. He denies significant shortness of breath, cough, sputum production, fever. He notes that he was treated recently for pneumonia after testing negative for COVID-19 a couple of weeks ago. He is still on antibiotics for this. MD complaint: chest pain Pertinent past history: coronary artery disease Onset (ago): day(s) Timing of current episode: episodic Prior episodes: Yes Onset: during rest Pain location: substernal Quality: tightness and heaviness Associated symptoms: Deny abdominal pain, dyspnea, fever(s), nausea, palpitations or vomiting Review of Systems Const: Denies: fever(s) or chills Eyes: Reports: change in vision Card: Reports: chest pain; Denies: palpitations Resp: Denies: dyspnea, productive cough or non-productive cough GI: Denies: abdominal pain, nausea or vomiting PFS ED PFSH: Medical History Atherosclerosis of coronary artery Colon polyps Current smoker Hypertension Surgical History History of appendectomy History of colonoscopy with polypectomy Family History Other Cancer Diabetes Hypertension Lung disease Denies family history of Dementia Stroke Social History Second hand smoke exposure: No Smoking risk assessment/counseling performed?: Yes Alcohol intake: never Desire information about alcohol rehabilitation?: No Counseling given: No Desire information about substance/drug rehabilitation?: No Counseling given: No Adopted: No Caregiver/support person: No Lives independently: Yes Household members: spouse Housing: House Marital status: Number of children: 2 service: No 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 Current gender identity: Male Physical Exam Const: COMMON NORMALS: no acute distress, patient oriented x3 and alert Eye: COMMON NORMALS: Equal, round and reactive pupils present and EOMs intact bilaterally PUPIL: Yes Equal, round and reactive pupils present Chest: COMMONS NORMALS: normal inspection of the chest Resp: COMMON NORMALS: normal respiratory effort, No use of accessory muscles and clear to auscultation bilaterally AUSCULTATION: clear to auscultation bilaterally Cardio: COMMON NORMALS: regular rate and regular rhythm RATE: regular rate RHYTHM: regular rhythm GI: COMMON NORMALS: Normal to inspection, nondistended, normoactive bowel sounds present, Soft to palpation and non-tender PALPATION: Yes Soft to palpation Neuro: COMMON NORMALS: patient oriented x3 SENSORIUM/ORIENTATION: Yes alert Course Vital Signs: Vital signs: Vital Signs Temperature 98.7 F 01/22/21 23:19 Pulse Rate 58 L 01/23/21 02:30 Respiratory Rate 18 01/23/21 02:30 Blood Pressure 117/73 01/23/21 02:30 Pulse Oximetry 97 01/23/21 02:30 MDM - Chest Pain MDM Narrative: Medical decision making narrative: 55-year-old male with known coronary disease that is significant. He has been referred to cardiothoracic surgery for CABG x2 given his recent cath findings. He has had chest pain the last 2 nights. Currently resolved after nitroglycerin at home, and morphine here. He feels stable. Current vitals blood pressure 116/60 heart rate 56 sinus, saturations 96% on room air with respirations of less than 20. His EKG shows a sinus bradycardia with a normal axis, normal intervals, and no ST change at all. His troponin was 7 and then 6 at 2 hours. His chest x-ray reveals nothing acute, his D-dimer is nondetectable. Initially, sodium appeared to be elevated at 167. This was questioned is erroneous. Repeat BMP shows a sodium level of 139 with a potassium of 4.4. Shared decision making was used with this patient. His troponin obviously did not elevate. His pain is gone. No coronary intervention would be available at this facility at this time for this patient. He likely needs bypass grafting surgery. He knows this. With resolution of his pain, the patient wishes to go home. Risks including return of pain, myocardial infarction, and were discussed. He noticed these, and would rather return home and await CTS evaluation. The patient will be allowed discharge. Lab Data: Labs: Lab Results 01/23/21 01/23/21 01/23/21 00:10 00:10 00:10 WBC 16.5 10^3/uL H 10 ^3/uL (4.0-10.0) RBC 4.43 10^6/uL 10^6 /uL (4.1-5.3) Hgb 13.4 g/dL g/dL (11.7-16.6) Hct 40.1 % L % (42.0-52.0) MCV 90.5 fl fl (80-94) MCH 30.2 pg pg (28.0-34.0) MCHC 33.4 g/dL g/dL (30.0-36.0) RDW 13.3 % % (12.1-15.1) Plt Count 265 10^3/cmm 10^3 /cmm (130-400) MPV 10.8 fL H fL (7.4-10.4) Neut % (Auto) 79.7 % % Lymph % (Auto) 13.2 % % Titus % (Auto) 5.0 % % Eos % (Auto) 1.3 % % Baso % (Auto) 0.3 % % Neut # (Auto) 13.12 10^3/uL H 1 0^3/uL (1.8-7.7) Lymph # (Auto) 2.2 10^3/uL 10^3/ uL (0.8-4.8) Titus # (Auto) 0.8 10^3/uL 10^3/ uL (0.2-0.9) Eos # (Auto) 0.2 10^3/uL 10^3/ uL (0.0-0.8) Baso # (Auto) 0.1 10^3/uL 10^3/ uL (0.0-0.1) Nucleated RBC % (a uto) 0 % % Nucleated RBCs # 0.0 /100WBC /100W BC PT 14.00 SECONDS SEC ONDS (12.1-14.9) INR 1.05 (0.8-1.2) APTT 29.5 SECONDS SECO NDS (23.9-36.7) D-Dimer Sodium 167 mmol/L H* mmo l/L (136-145) Potassium 5.3 mmol/L H mmol /L (3.5-5.1) Chloride 117 mmol/L H mmol /L (98-107) Carbon Dioxide 23 mmol/L mmol/L (22-29) Anion Gap 32.3 H (5-19) BUN 13 mg/dL mg/dL (6-20) Creatinine 0.8 mg/dL mg/dL (0.7-1.2) GFR Calculation 100.0 mL/min mL/m in (90-130) Glucose 94 mg/dL mg/dL (65-115) Calculated Osmolal ity 344 mOsm/kg H mOs m/kg (285-295) Calcium 9.5 mg/dL mg/dL (8.5-10.5) Total Bilirubin 0.2 mg/dL mg/dL (0.15-1.2) AST 20 U/L U/L (0-40) ALT 24 U/L U/L (0-41) Alkaline Phosphata se 104 IU/L IU/L (40-130) Troponin T Baselin e Troponin T 120 Min pilot point Delta Troponin T NT-Pro-B Natriuret Pep 75 pg/mL pg/mL (0-125) Total Protein 6.4 g/dL L g/dL (6.6-8.7) Albumin 4.4 g/dL g/dL (3.5-5.2) Globulin 2.0 g/dL g/dL (1.3-4.6) Urine Color Urine Appearance Urine pH Ur Specific Gravit y Urine Protein Urine Glucose (UA) Urine Ketones Urine Blood Urine Nitrate Urine Bilirubin Urine Urobilinogen Ur Leukocyte Kayla ase 01/23/21 01/23/21 01/23/21 00:10 00:10 01:10 WBC RBC Hgb Hct MCV MCH MCHC RDW Plt Count MPV Neut % (Auto) Lymph % (Auto) Titus % (Auto) Eos % (Auto) Baso % (Auto) Neut # (Auto) Lymph # (Auto) Titus # (Auto) Eos # (Auto) Baso # (Auto) Nucleated RBC % (a uto) Nucleated RBCs # PT INR APTT D-Dimer <= 0.27 ug/mIFEU ug/mIFEU (0-0.59) Sodium Potassium Chloride Carbon Dioxide Anion Gap BUN Creatinine GFR Calculation Glucose Calculated Osmolal ity Calcium Total Bilirubin AST ALT Alkaline Phosphata se Troponin T Baselin e 7 ng/L ng/L (0-15) Troponin T 120 Min pilot point Delta Troponin T NT-Pro-B Natriuret Pep Total Protein Albumin Globulin Urine Color Yellow (Yellow) Urine Appearance Clear (CLEAR) Urine pH 6 (5-7) Ur Specific Gravit y 1.010 (1.005-1.030) Urine Protein Neg (Negative) Urine Glucose (UA) Norm (Normal) Urine Ketones Negative (Negative) Urine Blood Neg (Negative) Urine Nitrate Negative (Negative) Urine Bilirubin Neg (Negative) Urine Urobilinogen Norm mg/dL mg/dL (Negative) Ur Leukocyte Kayla ase Negative (Negative) 01/23/21 01/23/21 02:17 02:17 WBC RBC Hgb Hct MCV MCH MCHC RDW Plt Count MPV Neut % (Auto) Lymph % (Auto) [place]itus % (Auto) Eos % (Auto) Baso % (Auto) Neut # (Auto) Lymph # (Auto) Titus # (Auto) Eos # (Auto) Baso # (Auto) Nucleated RBC % (a uto) Nucleated RBCs # PT INR APTT D-Dimer Sodium 139 mmol/L D mmo l/L (136-145) Potassium 4.4 mmol/L mmol/L (3.5-5.1) Chloride 104 mmol/L mmol/L (98-107) Carbon Dioxide 20 mmol/L L mmol/ L (22-29) Anion Gap 19.4 H (5-19) BUN 12 mg/dL mg/dL (6-20) Creatinine 0.6 mg/dL L mg/dL (0.7-1.2) GFR Calculation 139.4 mL/min H mL /min (90-130) Glucose 98 mg/dL mg/dL (65-115) Calculated Osmolal ity 288 mOsm/kg mOsm/ kg (285-295) Calcium 9.0 mg/dL mg/dL (8.5-10.5) Total Bilirubin AST ALT Alkaline Phosphata se Troponin T Baselin e Troponin T 120 Min [place] 6.00 ng/L ng/L (0-15) Delta Troponin T -1.00 ABS# L ABS# (0-10) NT-Pro-B Natriuret Pep Total Protein Albumin Globulin Urine Color Urine Appearance Urine pH Ur Specific Gravit y Urine Protein Urine Glucose (UA) Urine Ketones Urine Blood Urine Nitrate Urine Bilirubin Urine Urobilinogen Ur Leukocyte Kayla ase Discharge Plan Discharge Patient Disposition: Home Clinical Impression: Chest pain Qualifiers: Chest pain type: unspecified Qualified Code(s): R07.9 - Chest pain, unspecified Atherosclerosis of coronary artery Qualifiers: Coronary Disease-Associated Artery/Lesion type: [place] artery [place] vs. transplanted heart: [place] heart Associated angina: with unspecified form of angina Qualified Code(s): I25.119 - Atherosclerotic heart disease of [place] coronary artery with unspecified angina pectoris Condition: Stable Prescriptions: No Action omega-3 fatty acids 500 mg capsule 500 mg PO DAILY RF: 0 B12 Active 1,000 mcg tablet,chewable 1,000 mcg PO DAILY RF: 0 multivitamin [Daily Multi-Vitamin] Tablet 1 tab PO DAILY RF: 0 clopidogrel 75 mg tablet 75 mg PO DAILY Qty: 90 RF: 3 Hold Instructions: Resume on 05/29/20. metoprolol tartrate 25 mg tablet 25 mg PO BID Qty: 180 RF: 3 nitroglycerin 0.4 mg tablet, sublingual 0.4 mg SUBLINGUAL Q5M PRN (Reason: chest pain) Qty: 30 RF: 2 aspirin [Adult Aspirin Regimen] 81 mg tablet,delayed release (DR/EC) 81 mg PO DAILY Qty: 90 RF: 3 clindamycin HCl 300 mg capsule 300 mg PO TID 10 Days Qty: 30 RF: 1 rosuvastatin 40 mg tablet 40 mg PO DAILY Qty: 30 RF: 0 Discharge Orders: Discharge ED (Routine); Ordered 01/23/21 Ordered By: Danial Amaral Referrals: Giulia Dietz FNP-C [Primary Care Provider] - Marco Rose MD [Physician] - Patient Instructions: Chest Pain (ED) Activity Restrictions/Additional Instructions: Return immediately to the ER for return of chest discomfort, any shortness of breath, fever, leg swelling, or other concerns. Our case packer and sealer will follow up on your referral to [facility] cardiothoracic surgery on Sunday Coding Level of Care Code ED Ethylene Plant Operator for Chg Fwd Exam Detailed
[2021-01-23 01:42] LABS: Add Urine Microscopic? NO; Charge for UA Resulting for Rev
[2021-01-23 01:46] LABS: Bilirubin Urine Neg (Negative); Blood Urine Neg (Negative); Glucose Urine UA Norm (Normal); Ketones Urine Negative (Negative); Leukocyte Esterase Urine Negative (Negative); Nitrate Urine Negative (Negative); Protein Urine Neg (Negative); Urine Appearance Clear (CLEAR); Urine Color Yellow (Yellow); Urobilinogen Urine Norm (Negative); pH Urine 6 (5-7)
--- NOTE | 2021-01-23 01:47 | ECG_ITS ---
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 Measurements Intervals [place] Rate: 52 P: 45 [place]: 190 QRS: 41 QRSD: 86 T: 34 QT: 415 QTc: 389 Interpretive Statements SINUS BRADYCARDIA Compared to ECG 01/22/2021 23:27:33 No significant changes Electronically Signed On 01-23-2021 13:28:52 SYNTHETIC CLOTH BINDING CUTTER by Brian Avalos M.D. [id number]
[2021-01-23 02:05] LABS: D Dimer <= 0.27 ug/mIFEU (0-0.59)
[2021-01-23 02:30] VITALS: BP 117/73; PULSE 58; RESP 18; O2SAT 97
[2021-01-23 02:43] LABS: Anion Gap 19.4 (5-19); Blood Urea Nitrogen 12 mg/dL (6-20); Carbon Dioxide 20 mmol/L (22-29); Chloride 104 mmol/L (98-107); Glomerular Filtration Rate 139.4 mL/min (90-130); Glucose 98 mg/dL (65-115); Osmolality Calculated 288 mOsm/kg (285-295); Potassium 4.4 mmol/L (3.5-5.1); Sodium 139 mmol/L (136-145)
[2021-01-23 02:52] LABS: Creatinine Clr Calc Pharmacy 152.2726
[2021-01-23 03:41] VITALS: BP 116/77; PULSE 58; RESP 20; O2SAT 98
--- NOTE | 2021-01-24 10:03 | DCPLANNER ---
marketing compliance manager had message to schedule a follow up appointment for patient with CTS at [facility] in [place]. marketing compliance manager called CTS with [facility], got fax number to clinic. marketing compliance manager will fax patients information to [facility].
== END 2021-01-23 03:20 | disposition home or self-care (01) ==
PROVIDERS: Emergency Provider Emergency Medicine; PCP Nurse Practitioner
DX: R07.9 Chest pain, unspecified (principal); I25.119 Atherosclerotic heart disease of native coronary artery with unspecified angina pectoris; Z79.02 Long term (current) use of antithrombotics/antiplatelets; Z79.82 Long term (current) use of aspirin; I10 Essential (primary) hypertension
CPT/HCPCS: 36415; 71045; 80048; 80053; 81003; 83880; 84484; 85025; 85378; 85610; 85730; 93005; 96374; 96375; 99284; J2270; J2405

== ENCOUNTER → 2021-03-07 08:47 | Outpatient (BNVA) | payer OTHER, SELFPAY | PROVIDERS: PCP Nurse Practitioner; Visit Provider Nurse Practitioner Family | DX: J40 Bronchitis, not specified as acute or chronic (principal); R05.9 Cough, unspecified | CPT/HCPCS: 71046; 80053; 85025 ==

== ENCOUNTER → 2021-04-04 10:00 | Outpatient (BNVA) | payer OTHER, SELFPAY | PROVIDERS: PCP Nurse Practitioner; Visit Provider Nurse Practitioner Family | DX: J40 Bronchitis, not specified as acute or chronic (principal); J44.1 Chronic obstructive pulmonary disease with (acute) exacerbation; R06.02 Shortness of breath; R05.9 Cough, unspecified; R06.00 Dyspnea, unspecified; I10 Essential (primary) hypertension; I50.9 Heart failure, unspecified; J32.9 Chronic sinusitis, unspecified | CPT/HCPCS: 83880 ==

== ENCOUNTER → 2021-10-03 10:34 | Outpatient (BNVA) | payer OTHER, SELFPAY | PROVIDERS: PCP Nurse Practitioner; Visit Provider Nurse Practitioner Family | DX: S29.9XXA Unspecified injury of thorax, initial encounter (principal); Z95.1 Presence of aortocoronary bypass graft | CPT/HCPCS: 71046 ==

== ENCOUNTER → 2021-11-03 13:03 | Outpatient (BNVA) | payer OTHER, SELFPAY | PROVIDERS: PCP Nurse Practitioner; Visit Provider Nurse Practitioner Family | DX: I10 Essential (primary) hypertension (principal); I50.9 Heart failure, unspecified; J44.9 Chronic obstructive pulmonary disease, unspecified; N52.9 Male erectile dysfunction, unspecified; Z12.5 Encounter for screening for malignant neoplasm of prostate; Z95.1 Presence of aortocoronary bypass graft | CPT/HCPCS: 80053; 80061; 83036; 84402; 84403; 84443; G0103 ==

== ENCOUNTER 2021-12-29 15:30 | Outpatient (CLI) | payer OTHER, SELFPAY | END 2021-12-29 15:31 | disposition home or self-care (01) | LOC: SLEEP 01-02 07:48 | PROVIDERS: PCP Nurse Practitioner Family; Visit Provider Nurse Practitioner Family | DX: G47.33 Obstructive sleep apnea (adult) (pediatric) (principal); J44.9 Chronic obstructive pulmonary disease, unspecified | CPT/HCPCS: G0399 ==

== ENCOUNTER → 2022-02-06 10:27 | Outpatient (BNVA) | payer OTHER, SELFPAY | PROVIDERS: PCP Nurse Practitioner Family; Visit Provider Nurse Practitioner Family | DX: E11.9 Type 2 diabetes mellitus without complications (principal) | CPT/HCPCS: 83036 ==

== ENCOUNTER → 2022-05-22 09:52 | Outpatient (BNVA) | payer BC, SELFPAY | PROVIDERS: PCP Nurse Practitioner Family; Visit Provider Nurse Practitioner Family | DX: E11.9 Type 2 diabetes mellitus without complications (principal); I10 Essential (primary) hypertension | CPT/HCPCS: 80053; 80061; 83036 ==

== ENCOUNTER 2022-09-18 15:55 | Outpatient (CLI) | payer BC, SELFPAY ==
--- NOTE | 2022-09-18 16:59 | XRR_ITS ---
PROCEDURE INFORMATION: Exam: XR Right Elbow Exam date and time: 09/18/2022 5:02 PM Age: 56 years old Clinical indication: Pain; Elbow; Right; Additional info: Elbow pain TECHNIQUE: Imaging protocol: Radiologic exam of the right elbow. Views: 3 or more views. COMPARISON: No relevant prior studies available. FINDINGS: Bones/joints: The distal humerus is intact. The proximal radius is intact. The proximal ulna is intact. The radiocapitellar and ulnotrochlear joint spaces are normally maintained. Soft tissues: No elevated fat pad to suggest joint effusion is seen. XR/XR elbow RT min 3V* [id number] IMPRESSION: No evidence of acute fracture or dislocation.
== END 2022-09-18 15:56 | disposition home or self-care (01) ==
PROVIDERS: PCP Nurse Practitioner Family; Visit Provider Nurse Practitioner Family
DX: M25.521 Pain in right elbow (principal)
CPT/HCPCS: 73080

== ENCOUNTER → 2022-12-19 08:49 | Outpatient (BNVA) | payer BC, SELFPAY | PROVIDERS: PCP Nurse Practitioner Family; Visit Provider Nurse Practitioner Family | DX: N52.9 Male erectile dysfunction, unspecified (principal); R53.83 Other fatigue; Z12.5 Encounter for screening for malignant neoplasm of prostate; E11.9 Type 2 diabetes mellitus without complications; I10 Essential (primary) hypertension; J32.0 Chronic maxillary sinusitis | CPT/HCPCS: 80053; 80061; 83036; 84402; 84403; G0103 ==

== ENCOUNTER 2023-01-10 06:59 | Day surgery (SDC) | payer BC, SELFPAY ==
[2023-01-10 07:16] VITALS: BP 143/105; PULSE 80; RESP 16; TEMP 36.2; O2SAT 98; BMI 25.0
[2023-01-10] MEDS: sodium chloride 0.9% 1,000 ML 30 ML IV (07:22)
--- NOTE | 2023-01-10 07:24 | ANES.PREANE2 ---
Pre-Anesthetic Assessment Height/Weight: Height 1.83 m Weight 83.915 kg Temp Pulse Resp BP Pulse Ox O2 Del Method 97.1 F L 80 16 143/105 98 Room Air 01/10/23 07:16 01/10/23 07:16 01/10/23 07:16 01/10/23 07:16 01/10/23 07:16 01/10/23 07:16 Preop Diagnosis: GERD/colon screening Operation Date: 01/10/23 08:00 Proposed Procedures p [id number] egd [id number] colon G0121 screen colon a risk Z12.11,K21.9(Not Applicable) - Sukh Faulkner DO s Colonoscopy(Not Applicable) - Sukh Falukner DO Was Beta Temitope taken within 24 hours: N/A Last intake: Intake Last Liquid Date 01/09/23 Last Liquid Time 21:00 Last Solid Date 01/08/23 Last Solid Time 19:00 Social No tobacco (quit smoking two years ago) Exam alert and oriented x 3 Airway Submandibular: within normal limits Cervical ROM: within normal limits Mallampati: Class II Dentition: full History/ROS No significant history except as noted Pulmonary Chronic Obstructive Pulmonary Disease and Sleep Apnea (CPAP) CV/HEM Coronary Artery Disease and Hypertension (recently stopped metoprolol) None reported Hepatic None reported GI Gastroesophageal Reflux Disease Metabolic Hyperlipidemia [facility] [place] [place] None reported Neuropsych None reported Anesthetic Plan ASA status: 2 Anesthesia: MAC Medications/Allergies Home Medications Medication Instructions Recorded Confirmed Last Taken Type mecobalamin (vitamin B12) 1,000 1,000 mcg PO DAILY 11/26/19 01/10/23 01/05/23 History mcg chewable tablet (B12 Active) multivitamin (Daily Multi-Vitamin 1 tab PO DAILY 11/26/19 01/10/23 12/25/22 History tablet) omega-3 fatty acids 500 mg capsule 500 mg PO DAILY 11/26/19 01/10/23 01/08/23 History aspirin 81 mg tablet,delayed 81 mg PO DAILY #90 tabs 12/13/20 01/10/23 01/06/23 Rx release (Adult Aspirin Regimen) nitroglycerin 0.4 mg sublingual 0.4 mg sublingual Q5M PRN chest 12/14/21 01/10/23 Unknown Rx tablet pain #30 tabs AUTO TITRAITING CPAP AND SUPPLIES #1 ea 02/17/22 01/10/23 Unknown Rx fexofenadine 60 mg-pseudoephedrine 1 tab PO Q12H PRN sinus symptoms 12/19/22 01/10/23 01/01/23 Rx ER 120 mg tablet,ext.release,12 hr 10 days #20 tabs (Keturah-D 12 Hour) metformin 500 mg tablet,extended 500 mg PO DAILY 90 days #90 tabs 12/19/22 01/10/23 01/01/23 Rx release 24 hr rosuvastatin 20 mg tablet 20 mg PO DAILY #30 tabs 12/25/22 01/10/23 01/08/23 Rx pantoprazole 40 mg tablet,delayed 40 mg PO BID 6 weeks #84 tabs 01/02/23 01/10/23 01/08/23 Rx release (Protonix) Allergies Allergy/AdvReac Type Severity Reaction Status Date / Time atorvastatin Allergy Intermediate ALGY-Joint Verified 01/10/23 07:16 Pain Penicillins Allergy swelling Verified 01/10/23 07:16 Current Medications Generic Name Dose Route Start Last Admin Trade Name Freq PRN Reason Stop Dose Admin Sodium Chloride 1,000 mls @ 30 mls/hr 01/10/23 07:15 01/10/23 07:22 Sodium Chloride 0.9% IV 01/11/23 07:14 30 mls/hr .Q24H HEYDI Administration PFSH Anesthesia Medical History (Updated 01/02/23 @ 11:18 by Sukh Faulkner DO) Atherosclerosis of coronary artery Colon polyps Current smoker Hypertension Surgical History (Updated 01/02/23 @ 11:18 by Sukh Faulkner DO) History of appendectomy History of colonoscopy with polypectomy History of quadruple bypass Family History Other Cancer Diabetes Hypertension Lung disease Denies family history of Dementia Stroke Social History Smoking and tobacco/nicotine status: former use of tobacco/nicotine Quit status (tobacco/nicotine): has quit using Year quit tobacco: 2020 Former quit date comment: 1ppd x 40 years Second hand smoke exposure: No Alcohol intake: never Substance/Drug Use: never Adopted: No Caregiver/support person: No Lives independently: Yes Household members: spouse Housing: House Marital status: Number of children: 2 service: No 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
--- NOTE | 2023-01-10 07:57 | W.PM.OPSUD ---
Surgery/Procedure H&P Update DATE OF PROCEDURE: January 10, 2023 DATE H&P PERFORMED: 12/29/22 H&P UPDATE INFORMATION: I have reviewed H&P completed within last 30 days, I have examined patient prior to procedure and No changes to prior documentation PREOP DIAGNOSIS: GERD/colon screening PLANNED PROCEDURE: Operation Date: 01/10/23 08:00 Proposed Procedures p [id number] egd [id number] colon G0121 screen colon a risk Z12.11,K21.9(Not Applicable) - DO hussain Wallis Colonoscopy(Not Applicable) - Sukh Faulkner DO
[2023-01-10 08:21] VITALS: BP 123/76; PULSE 55; RESP 18; TEMP 36.1; O2SAT 98
[2023-01-10 08:36] VITALS: BP 125/81; PULSE 58; RESP 16; O2SAT 97
--- NOTE | 2023-01-10 10:13 | ANE.PACU2 ---
Inpatient post-anesthesia follow up: Airway intact: Yes Vital signs: Temperature 97.0 F Pulse Rate 58 Respiratory Rate 16 Blood Pressure 125/81 Pulse Oximetry 97 Oxygen Delivery Me thod Room Air Oxygen Flow Rate Fraction of Inspir ed Oxygen Hydration adequate: Yes Nausea and vomiting: No Pain level: 2 Mental status: Baseline
== END 2023-01-10 08:53 | disposition home or self-care (01) ==
PROVIDERS: PCP Nurse Practitioner Family; Visit Provider Surgery
PROC: 0DJ08ZZ Inspection of Upper Intestinal Tract, Via Natural or Artificial Opening Endoscopic (ICD-10-PCS; CPT 43235; principal; 2023-01-10 08:00)
PROC: 0DJD8ZZ Inspection of Lower Intestinal Tract, Via Natural or Artificial Opening Endoscopic (ICD-10-PCS; CPT 45378; 2023-01-10 08:00)
DX: Z12.11 Encounter for screening for malignant neoplasm of colon (principal); K21.9 Gastro-esophageal reflux disease without esophagitis; K29.50 Unspecified chronic gastritis without bleeding; J44.9 Chronic obstructive pulmonary disease, unspecified; G47.30 Sleep apnea, unspecified; I25.10 Atherosclerotic heart disease of native coronary artery without angina pectoris; I10 Essential (primary) hypertension; E78.5 Hyperlipidemia, unspecified; Z79.82 Long term (current) use of aspirin; Z79.84 Long term (current) use of oral hypoglycemic drugs; Z87.891 Personal history of nicotine dependence
CPT/HCPCS: 43239; 45378; 88305; 88342; J2704; J7030

== ENCOUNTER → 2023-03-22 11:33 | Outpatient (BNVA) | payer BC, SELFPAY | PROVIDERS: PCP Nurse Practitioner Family; Visit Provider Nurse Practitioner Family | DX: K21.9 Gastro-esophageal reflux disease without esophagitis (principal); G47.33 Obstructive sleep apnea (adult) (pediatric); J44.9 Chronic obstructive pulmonary disease, unspecified; E11.9 Type 2 diabetes mellitus without complications; Z95.1 Presence of aortocoronary bypass graft; I10 Essential (primary) hypertension | CPT/HCPCS: 80053; 80061; 83036 ==

== ENCOUNTER → 2023-06-27 09:00 | Outpatient (BNVA) | payer BC, SELFPAY | PROVIDERS: PCP Nurse Practitioner Family; Visit Provider Nurse Practitioner Family | DX: S59.901A Unspecified injury of right elbow, initial encounter (principal); X58.XXXA Exposure to other specified factors, initial encounter | CPT/HCPCS: 73080; 80053; 80061; 83036; 85025; 86618; 86666; 86757 ==

== ENCOUNTER → 2023-09-27 11:53 | Outpatient (BNVA) | payer BC, SELFPAY | PROVIDERS: PCP Nurse Practitioner Family; Visit Provider Nurse Practitioner | DX: R19.7 Diarrhea, unspecified (principal) | CPT/HCPCS: 87045; 87427; 87449 ==

== ENCOUNTER 2024-02-05 08:29 | Outpatient (CLI) | payer BC, SELFPAY ==
--- NOTE | 2024-02-05 08:30 | CT_ITS ---
WS: [id number] LDCT LUNG CANCER SCREENING TECHNIQUE: Noncontrast CT of the chest with coronal and sagittal reformatted images. CLINICAL INFORMATION: NICOTINE DEPENDENCE,CIGARETTES COMPARISON: None. DLP: 78.71 mGy.cm DIvol: Mean CTDIvol: 1.70 (mGy) All CT scans at [facility] use at least one of these dose optimization techniques: automat ed exposure control; mA and/or kV adjustment per patient size (includes targeted exams where dose is matched to clinical indication); or iterative reconstruction. FINDINGS: Advanced chronic eczematous changes. Calcified granulomas. 6 mm noncalcified nodule LEFT up per lobe anteriorly. 5 mm nodule lung apex. Fibrosis in the lung apices. 5 mm nodule RIGHT upper lobe anteriorly near the lung apex. 5 mm nodule LEFT lower lobe posterior medially. Prior sternotomy. CABG. Cardiomegaly. Normal caliber thoracic aorta. Mild aortic calcification. Calci fied RIGHT hilar lymph nodes. A few prominent anterior mediastinal and peribronchial lymph nodes like ly reactive. Adrenal glands are normal. Calcified splenic granulomas. RIGHT hepatic cyst unchanged since 2020. Spl enic artery calcifications. Small esophageal hiatal hernia. Mild thoracic kyphosis. CT/CT lung screening [id number] IMPRESSION: 6 mm noncalcified nodule LEFT upper lobe anteriorly. No comparisons . Recommend 6-month follow-up. LUNG-RADS: 3-Probably Benign FOLLOW UP: 6 Month LDCT
== END 2024-02-05 08:30 | disposition home or self-care (01) ==
LOC: RAD 08:29
PROVIDERS: PCP Nurse Practitioner Family; Visit Provider Nurse Practitioner Family
DX: Z12.2 Encounter for screening for malignant neoplasm of respiratory organs (principal); J43.9 Emphysema, unspecified; J84.10 Pulmonary fibrosis, unspecified; R91.8 Other nonspecific abnormal finding of lung field; Z98.890 Other specified postprocedural states; Z95.1 Presence of aortocoronary bypass graft; D73.89 Other diseases of spleen; Q44.6 Cystic disease of liver; K44.9 Diaphragmatic hernia without obstruction or gangrene
CPT/HCPCS: 71271

== ENCOUNTER 2024-04-24 09:36 | Emergency (ER) | payer OTHER, SELFPAY ==
[2024-04-24 09:58] VITALS: BP 136/86; PULSE 69; RESP 12; TEMP 36.5; O2SAT 95; BMI 25.7
--- NOTE | 2024-04-24 10:07 | PC.NURSE ---
Medical Accountant Kingsley Pearson is with pt at this time. They called their workcomp provider and they spoke with this nurse and said they need nothing other than what the provider wants to do. I clarified and she denied needing alcohol or drug testing.
--- NOTE | 2024-04-24 10:31 | ED_ITS ---
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 He states the needle. Old struck him in the right pinky finger. He denies any pain no other complaints at this time Associated symptoms: Deny chest pain, fever(s) or rash Related Data Home Medications ?Medication ?Instructions ?Recorded ?Confirmed mecobalamin (vitamin B12) 1,000 1,000 mcg PO DAILY 09/0701/08/24 mcg chewable tablet (B12 Active) multivitamin (Daily Multi-Vitamin 1 tab PO DAILY 11/2501/08/24 tablet) omega-3 fatty acids 500 mg capsule 500 mg PO DAILY 09/0701/08/24 Previous Rx's ?Medication ?Instructions ?Recorded aspirin 81 mg tablet,delayed 81 mg PO DAILY #90 tabs 1 release (Adult Aspirin Regimen) AUTO TITRAITING CPAP AND SUPPLIES #1 ea 02/17/22 fexofenadine 60 mg-pseudoephedrine 1 tab PO Q12H PRN s inus symptoms 12/19/22 ER 120 mg tablet,ext.release,12 hr 10 days #20 tabs (Keturah-D 12 Hour) omeprazole 40 mg capsule,delayed 40 mg PO DAILY 30 day s #30 caps 01/24/23 release mupirocin 2 % topical ointment 1 applic topical TID #2 2 grams 05/03/23 rosuvastatin 20 mg tablet 20 mg PO DAILY 90 days #90 t abs 06/27/23 nitroglycerin 0.4 mg sublingual 0.4 mg sublingual Q5M PRN chest 08/13/23 tablet pain #30 tabs lisinopril 10 mg tablet 10 mg PO DAILY 30 days #30 t abs 08/22/23 azithromycin 500 mg tablet 500 mg PO DAILY 5 days #5 t abs 10/01/23 nirmatrelvir 300 mg (150 mg See Rx Instructions PO .CO MPLEX 11/13/23 x2)-ritonavir 100 mg tablet,dose #30 ea pack (Paxlovid) Allergies Allergy/AdvReac Type Severity Reaction Status Date / Time atorvastatin Allergy Intermediate ALGY-Joint Verified 01/08/24 10:21 Pain Penicillins Allergy swelling Verified 01/08/24 10:21 Review of Systems Const: Denies: fever(s), chills, body aches or change in appetite ENMT: Denies: throat pain or dental pain Card: Denies: chest pain Resp: Denies: dyspnea GI: Denies: abdominal pain, nausea, vomiting or diarrhea Musc: Reports: extremity pain; Denies: neck pain or back pain Skin/Breast: Denies: rash Neuro: Denies: headache(s) PFSH ED PFSH: Medical History Atherosclerosis of coronary artery Colon polyps Current smoker Hypertension Surgical History History of quadruple bypass History of appendectomy History of colonoscopy with polypectomy Family History Other Cancer Diabetes Hypertension Lung disease Denies family history of Dementia Stroke Social History Smoking and tobacco/nicotine status: former use of tobacco/nicotine Quit status (tobacco/nicotine): has quit using Year quit tobacco: 2020 Former quit date comment: 1ppd x 40 years Second hand smoke exposure: No Alcohol intake: never Substance/Drug Use: never Adopted: No Caregiver/support person: No Lives independently: Yes Household members: spouse Housing: House Marital status: Number of children: 2 service: No Current occupational status: employed 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 Do you think of yourself as: Straight/Heterosexual Current gender identity: Male Physical Exam Const: COMMON NORMALS: no acute distress, patient oriented x3 and healthy appearing HENMT: COMMON NORMALS: normocephalic and atraumatic HEAD & SCALP: normocephalic and atraumatic Eye: COMMON NORMALS: conjunctivae normal CONJUNCTIVA: Yes conjunctivae normal Neck/C-Spine: COMMON NORMALS: full ROM and supple Chest: COMMONS NORMALS: normal inspection of the chest Resp: COMMON NORMALS: normal respiratory effort Cardio: COMMON NORMALS: regular rate RATE: regular rate Extremity: OTHER: Puncture wound to right pinky finger Neuro: COMMON NORMALS: patient oriented x3, moves all extremities and no focal motor deficits Psych: COMMON NORMALS: mental status grossly normal, Normal thought process present and cooperative THOUGHT PROCESS: Normal thought process present Skin: COMMON NORMALS: no rashes or lesions noted and no wounds GENERAL SKIN EXAM: no rashes or lesions noted Course Vital Signs: Vital signs: Vital Signs Temperature 97.7 F 04/24/24 09:58 Pulse Rate 69 04/24/24 09:58 Respiratory Rate 12 04/24/24 09:58 Blood Pressure 136/86 04/24/24 09:58 Pulse Oximetry 95 04/24/24 09:58 Oxygen Delivery Me thod Room Air 04/24/24 09:58 MDM - Extremity (Nontraumatic) Medical Decision Making Patient presents here with a needlestick injury will check hepatitis HIV he does not require prophylaxis at this time he did not want it. He is to follow-up with his work comp Medical Records I reviewed the patient's medical records. No radiology studies performed this visit Discharge Plan Discharge Patient Disposition: Home Clinical Impression: Needle stick injury Condition: Stable Prescriptions: No Action omega-3 fatty acids 500 mg capsule 500 mg PO DAILY B12 Active 1,000 mcg tablet,chewable 1,000 mcg PO DAILY multivitamin [Daily Multi-Vitamin] Tablet 1 tab PO DAILY aspirin [Adult Aspirin Regimen] 81 mg tablet,delayed release (DR/EC) 81 mg PO DAILY Qty: 90 3RF fexofenadine-pseudoephedrine [Keturah-D 12 Hour] 60-120 mg tablet extended release 12 hr 1 tab PO Q12H PRN (Reason: sinus symptoms) 10 Days Qty: 20 1RF mupirocin 2 % ointment 1 applic topical TID Qty: 22 0RF rosuvastatin 20 mg tablet 20 mg PO DAILY 90 Days Qty: 90 1RF lisinopril 10 mg tablet 10 mg PO DAILY 30 Days Qty: 30 0RF omeprazole 40 mg capsule,delayed release(DR/EC) 40 mg PO DAILY 30 Days Qty: 30 11RF (DME) AUTO TITRAITING CPAP AND SUPPLIES See Rx Instructions .Route .MEDSUPPLY Qty: 1 0RF Rx Instructions: As directed nitroglycerin 0.4 mg tablet, sublingual 0.4 mg SUBLINGUAL Q5M PRN (Reason: chest pain) Qty: 30 2RF Rx Instructions: do not exceed 3 doses per episode azithromycin 500 mg tablet 500 mg PO DAILY 5 Days Qty: 5 0RF Paxlovid 300 mg (150 mg x 2)-100 mg tablets,dose pack See Rx Instructions PO .COMPLEX Qty: 30 0RF Rx Instructions: take TWO 150 mg tablets of nirmatrelvir with ONE 100 mg tablet of ritonavir twice daily for 5 days PO Discharge Orders: Discharge ED (Routine); Ordered 04/24/24 Ordered By: Fantasma Farah Referrals: Maura Cho FNP [Primary Care Provider] - Discharge Diet: Advance as tolerated Discharge Activity: Resume usual activity Patient Instructions: Needle Stick Injuries (ED) Print Language: [place] Leonean Coding Level of Care Code ED 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
[2024-04-24 11:18] LABS: HIV 1 & 2 Antibody Non-Reactive (Non-Reactiv); HIV 1 & 2 Antigen Non-Reactive (Non-Reactiv)
[2024-04-24 11:34] LABS: Hepatitis A Antibody IgM Non-Reactive (Nonreactive); Hepatitis B Core AB, Total Non-Reactive (Nonreactive); Hepatitis B Surface AB 695.7 (11.5-1000); Hepatitis B Surface Antigen Non-Reactive (Nonreactive); Hepatitis C Virus Antibody Non-Reactive (Nonreactive)
== END 2024-04-24 10:39 | disposition home or self-care (01) ==
PROVIDERS: Emergency Provider Emergency Medicine; PCP Nurse Practitioner Family
DX: S69.81XA Other specified injuries of right wrist, hand and finger(s), initial encounter (principal); W46.1XXA Contact with contaminated hypodermic needle, initial encounter; Z87.891 Personal history of nicotine dependence; Z79.82 Long term (current) use of aspirin; I25.10 Atherosclerotic heart disease of native coronary artery without angina pectoris; I10 Essential (primary) hypertension
CPT/HCPCS: 36415; 86705; 86706; 86709; 86803; 87340; 87806; 99283

== ENCOUNTER 2024-06-03 12:01 | Outpatient (CLI) | payer BC, SELFPAY ==
--- NOTE | 2024-06-03 12:13 | XRR_ITS ---
PROCEDURE INFORMATION: Exam: XR Lumbosacral Spine Exam date and time: 06/03/2024 12:24 PM Age: 58 years old Clinical indication: Low back pain; Additional info: Lumbar back pain TECHNIQUE: Imaging protocol: Radiologic exam of the lumbosacral spine. Views: 2 or 3 views. COMPARISON: MR lumbar spine wo con* [id number] 06/22/2020 3:40 PM FINDINGS: Bones/joints: There is transitional anatomy at the lumbosacral junction, which was described as sacralization of the L5 vertebral body based on the prior MRI lumbar spine counting from the craniocervical junction. There is narrowing at the transitional L5-S1 level with bilateral pseudarthroses. Remaining disc spaces are preserved. Vertebral bodies are normal in height. No evidence for acute fracture. There is facet joint sclerosis at L4-L5 and L5-S1. Soft tissues: There is atherosclerotic calcification of the abdominal aorta. XR/XR lumbar spine 2-3V* [id number] IMPRESSION: 1. Transitional anatomy at the lumbosacral junction described as sacralization of the L5 vertebral body. If future surgery is contemplated, correlation with sagittal MRI and intraoperative lateral plain film is recommended to ensure proper localization. 2. Degenerative changes at the L5-S1 level.
== END 2024-06-03 12:02 | disposition home or self-care (01) ==
PROVIDERS: PCP Nurse Practitioner Family; Visit Provider Nurse Practitioner Family
DX: M47.897 Other spondylosis, lumbosacral region (principal); M43.27 Fusion of spine, lumbosacral region; R93.7 Abnormal findings on diagnostic imaging of other parts of musculoskeletal system; M47.816 Spondylosis without myelopathy or radiculopathy, lumbar region; M47.817 Spondylosis without myelopathy or radiculopathy, lumbosacral region; I70.0 Atherosclerosis of aorta
CPT/HCPCS: 72100

== ENCOUNTER 2024-07-18 06:27 | Outpatient (CLI) | payer BC, SELFPAY ==
--- NOTE | 2024-07-18 06:42 | CTR_ITS ---
PROCEDURE INFORMATION: Exam: CT Chest Without Contrast; Diagnostic Exam date and time: 07/18/2024 6:48 AM Age: 58 years old Clinical indication: Abnormal findings; Abnormal radiologic exam of lung or chest; Prior surgery; Surgery date: 6+ months; Surgery type: Open heart, lung naman from open heart surgery 3 years ago; Additional info: Abnormal finding on diagnostic imaging of lung TECHNIQUE: Imaging protocol: Diagnostic computed tomography of the chest without contrast. Radiation optimization: All CT scans at this facility use at least one of these dose optimization techniques: automated exposure control; mA and/or kV adjustment per patient size (includes targeted exams where dose is matched to clinical indication); or iterative reconstruction. COMPARISON: CT lung screening [id number] 02/05/2024 8:50 AM RADIATION DOSE METRICS: Total DLP (mGy-cm): 445.06 FINDINGS: Thyroid: The bilateral thyroid lobes are unremarkable. Lungs: Severe centrilobular/paraseptal emphysema bilaterally, most extensive in the right apex, with 7.7 cm apical bleb. Part solid 6.1 mm nodule right upper lobe posterior segment. Additional part solid nodule same segment measuring 6.3 mm. Additional smaller solid nodules same segment. Part solid nodule left upper lobe anterior segment medially measuring 6.3 mm, stable. Bilateral right predominant lower lung zone peripheral intralobular and inter lobular increased markings with architectural distortion, left medial basilar, right posterior basilar mild cicatricial bronchiectasis. Pleural spaces: No pneumothorax. No pleural effusion. Heart: Mild aortic valvular calcification is present. Coronary arteries: Left main, LAD, LCx and RCA calcified coronary atherosclerosis. Lymph nodes: No enlarged lymph nodes. Vasculature: Moderate aortic arch, branch, and descending thoracic aortic atherosclerotic calcification without ectasia. Diaphragm: A small sliding hiatal hernia is present above the level of the diaphragm. Liver: Mild diffuse hypoattenuation of the liver is present consistent with hepatic steatosis. Hepatic benign cyst, measuring 12.6 mm. Spleen: The spleen demonstrates several small calcifications consistent with healed granulomatous disease. Bones/joints: The patient is status post median sternotomy with sternal cerclage wires. No destructive bony process identified. Small lower thoracic spine vertebral body marginal osteophytes. Soft tissues: Unremarkable. CT/CT chest wo con [id number] IMPRESSION: 1. Small hiatal hernia. 2. Pulmonary emphysema. 3. Partially solid nodule in the bilateral upper lobes greater than 6 mm, stable on the left, new on the right. Recommend CT at 3-6 months to confirm persistence (new nodules), then annual CT for 5 years (Chago et al., Fleischner Society, 2017). 4. Possible interstitial fibrosis. 5. Coronary atherosclerosis. 6. Fatty infiltration of the liver. 7. Hepatic benign cyst. No follow-up imaging is recommended. COMMENTS: The presence of pulmonary emphysema on CT is an independent risk factor for lung cancer. In the absence of a history or active diagnosis of lung cancer, it is recommended that this patient with emphysema be evaluated for enrollment in a low dose CT lung cancer screening program.
== END 2024-07-18 06:28 | disposition home or self-care (01) ==
PROVIDERS: Visit Provider Nurse Practitioner Family
DX: R91.8 Other nonspecific abnormal finding of lung field (principal); K44.9 Diaphragmatic hernia without obstruction or gangrene; J43.8 Other emphysema; I25.10 Atherosclerotic heart disease of native coronary artery without angina pectoris; K76.0 Fatty (change of) liver, not elsewhere classified; K76.89 Other specified diseases of liver; J47.9 Bronchiectasis, uncomplicated; I70.0 Atherosclerosis of aorta; D73.89 Other diseases of spleen; Z98.890 Other specified postprocedural states; M25.78 Osteophyte, vertebrae
CPT/HCPCS: 71250

== ENCOUNTER → 2024-07-24 12:47 | Outpatient (BNVA) | payer OTHER, SELFPAY | PROVIDERS: Visit Provider Nurse Practitioner Family | DX: Z11.4 Encounter for screening for human immunodeficiency virus [HIV] (principal); Z11.59 Encounter for screening for other viral diseases; I25.119 Atherosclerotic heart disease of native coronary artery with unspecified angina pectoris; I50.9 Heart failure, unspecified; E11.9 Type 2 diabetes mellitus without complications; E78.2 Mixed hyperlipidemia; J44.9 Chronic obstructive pulmonary disease, unspecified; K21.9 Gastro-esophageal reflux disease without esophagitis; Z95.1 Presence of aortocoronary bypass graft | CPT/HCPCS: 86803; 87806 ==

== ENCOUNTER → 2024-07-29 08:26 | Outpatient (BNVA) | payer OTHER, BC, SELFPAY | PROVIDERS: PCP Nurse Practitioner Family; Visit Provider Nurse Practitioner Family | DX: E11.9 Type 2 diabetes mellitus without complications (principal); R53.83 Other fatigue; J44.9 Chronic obstructive pulmonary disease, unspecified; K21.9 Gastro-esophageal reflux disease without esophagitis; E78.2 Mixed hyperlipidemia; I50.9 Heart failure, unspecified; I25.119 Atherosclerotic heart disease of native coronary artery with unspecified angina pectoris; Z95.1 Presence of aortocoronary bypass graft | CPT/HCPCS: 80053; 80061; 83036; 84403; 84443; 85025 ==

== ENCOUNTER → 2025-01-26 08:27 | Outpatient (BNVA) | payer BC, SELFPAY | PROVIDERS: PCP Nurse Practitioner Family; Visit Provider Nurse Practitioner Family | DX: Z12.5 Encounter for screening for malignant neoplasm of prostate (principal); I10 Essential (primary) hypertension; E78.2 Mixed hyperlipidemia; E11.9 Type 2 diabetes mellitus without complications; R53.83 Other fatigue; R68.82 Decreased libido | CPT/HCPCS: 80053; 80061; 82040; 83036; 84270; 84403; 84443; 85025; G0103 ==